=== PATIENT | male | born 1945 | race Caucasian/White ===

== ENCOUNTER → 2016-10-02 | Outpatient (CLI) | payer MEDICARE ==
[~2016-10-02] MED LIST: AMIO200T PO; ASPI325T PO; ATOR40TA PO; ATOR40TA16 PO; Aspirin Chew PO; DOCU1CAP39 PO; FERR325T PO; FINA5TAB2 PO; METO25TA3 PO; PANT40TA3 PO; PLAV75TA29 PO; PROS5TAB2 PO; PROT40TA PO; TAMS0.4C67 PO; TAMS5CAP PO; ZOFR4TAB3 SL
[2016-10-02 13:09] LABS: HEMATOCRIT 41.6 % (39.0-51.0); MEAN CELL VOLUME 96.1 FL (80.0-100.0); MEAN CORPUSCULAR HEMOGLOBIN 32.3 PG (27.0-34.0); MEAN CORPUSCULAR HGB CONC 33.6 % (32.0-36.0); PLATELET COUNT 122 TH/MM3 (150-450); RED BLOOD COUNT 4.33 MIL/MM3 (4.50-5.90); RED CELL DISTRIBUTION WIDTH 14.8 % (11.6-17.2); REVIEW FLAG FINAL; WHITE BLOOD COUNT 14.3 TH/MM3 (4.0-11.0)
[2016-10-02 13:32] LABS: ANION GAP 6 MEQ/L (5-15); AST (GOT) 13 U/L (15-37); BICARBONATE 26.3 MEQ/L (21.0-32.0); BLOOD UREA NITROGEN 11 MG/DL (7-18); CHLORIDE 112 MEQ/L (98-107); GLOMERULAR FILTRATION RATE 48 ML/MIN (>89); GLUCOSE,FASTING 99 MG/DL (74-99); POTASSIUM 4.4 MEQ/L (3.5-5.1); SODIUM (NA) 144 MEQ/L (136-145)
[2016-10-02 13:42] LABS: ALKALINE PHOSPHATASE 86 U/L (45-117); ALT (GPT) 19 U/L (12-78); HDL CHOLESTEROL 33.5 MG/DL (40.0-60.0); LDL CHOLESTEROL 44 MG/DL (0-99); LDL CHOLESTEROL DIRECT 51 MG/DL (0-99); TOTAL BILIRUBIN ADULT 0.6 MG/DL (0.2-1.0)
[2016-10-02 13:59] LABS: WESTERGREN SEDIMENTATION RATE 2 mm/hr (0-20)
[2016-10-02 16:19] LABS: HEMOGLOBIN A1a 1.1 %; HEMOGLOBIN A1b 0.7 %; HEMOGLOBIN F 0.7 %; HEMOGLOBIN LA1C 1.8 %; HEMOGLOBIN P3 3.3 %
== END ==
LOC: PLAB 11:09
PROVIDERS: ATTEND Family Medicine
DX: R53.83 Other fatigue (principal); E78.2 Mixed hyperlipidemia; I10 Essential (primary) hypertension; R73.01 Impaired fasting glucose; M35.3 Polymyalgia rheumatica; N39.0 Urinary tract infection, site not specified; C91.90 Lymphoid leukemia, unspecified not having achieved remission
CPT/HCPCS: 36415; 80053; 80061; 83036; 83721; 84443; 85027; 85652

== ENCOUNTER → 2016-12-18 | Outpatient (CLI) | payer MEDICARE ==
[2016-12-18 16:25] LABS: BICARBONATE 25.1 MEQ/L (21.0-32.0); POTASSIUM 4.5 MEQ/L (3.5-5.1)
== END ==
LOC: PLAB 11:28
PROVIDERS: ATTEND Family Medicine
DX: E78.4 Other hyperlipidemia (principal); I10 Essential (primary) hypertension; R73.01 Impaired fasting glucose
CPT/HCPCS: 36415; 80048

== ENCOUNTER → 2016-12-31 | Outpatient (CLI) | payer MEDICARE | LOC: PLAB 10:21 | PROVIDERS: ATTEND Internal Medicine Cardiovascular Disease | DX: R93.1 Abnormal findings on diagnostic imaging of heart and coronary circulation (principal) | CPT/HCPCS: 36415; 80048 ==

== ENCOUNTER 2017-01-15 10:38 | Inpatient (IN) | payer MEDICARE ==
[2017-01-15] VITALS (11 sets, daily range): BP systolic 139–167; BP diastolic 64–97; PULSE 44–77; RESP 16–18; TEMP 97.5–98.1; O2SAT 96–100
[~2017-01-15] VITALS: Ht 177.8 cm; Wt 96.7 kg
[~2017-01-15 10:38] MED LIST changes: -AMIO200T PO; -ASPI325T PO; -ATOR40TA16 PO; -Aspirin Chew PO; -DOCU1CAP39 PO; -FERR325T PO; -FINA5TAB2 PO; -METO25TA3 PO; -PANT40TA3 PO; -PLAV75TA29 PO; -TAMS5CAP PO
[2017-01-15] MEDS ORDERED: NS 1000P @30 MLS/HR (KVO) IV SCH (11:30)
[2017-01-15] MEDS: SODIUM CHLOR 0.9% 1000 ML INJ 1,000 ML IV SCH (11:32)
[2017-01-15] MEDS ORDERED: ATOR40TA16 PO (11:37)
[2017-01-15] MEDS ORDERED: ASPI325T PO (11:37)
[2017-01-15] MEDS ORDERED: FINA5TAB2 PO (11:37)
[2017-01-15] MEDS ORDERED: TAMS5CAP PO (11:37)
[2017-01-15] MEDS ORDERED: PANT40TA3 PO (11:37)
[2017-01-15] MEDS ORDERED: ASPIRIN 325 MG TAB PO SCH (11:45)
[2017-01-15 11:47] LABS: AUTOMATED NEUTROPHIL # 1.8 TH/MM3 (1.8-7.7); BASOPHIL % 0.2 % (0.0-2.0); EOSINOPHIL % 0.2 % (0.0-4.0); HEMATOCRIT 39.7 % (39.0-51.0); LYMPH % 81.8 % (9.0-44.0); MEAN CORPUSCULAR HGB CONC 34.7 % (32.0-36.0); MONO % 1.1 % (0.0-8.0); NEUT % 16.7 % (16.0-70.0); PLATELET COUNT 114 TH/MM3 (150-450); RED BLOOD COUNT 4.05 MIL/MM3 (4.50-5.90); RED CELL DISTRIBUTION WIDTH 14.4 % (11.6-17.2)
[2017-01-15 11:48] LABS: HEMO FLAGS AUTO DIFF
[2017-01-15 11:58] LABS: APTT (PATIENT) 26.3 SEC (24.3-30.1); PROTHROMBIN TIME - PATIENT 11.4 SEC (9.8-11.6)
[2017-01-15 12:15] LABS: POTASSIUM 3.9 MEQ/L (3.5-5.1)
[2017-01-15] MEDS ORDERED: IOHEXOL 350 MG/ML 100 ML BTL (for Cath Lab) OTHER ONE (12:25)
[2017-01-15] MEDS ORDERED: MIDAZOLAM HCL 2 MG/2 ML VIAL ONE (12:26)
[2017-01-15] MEDS ORDERED: HEPARIN-NS/PF INJ 500 ML ONE (12:26)
[2017-01-15 12:46] LABS: NEUTROPHIL # MANUAL DIFF 0.9 TH/MM3 (1.8-7.7); OVALOCYTES 1+ (NORMAL); POLYS (SEG NEUTROPHILS) 8 % (16-70); WBC DIFF SAMPLE 100
[2017-01-15 12:47] LABS: PLATELET ESTIMATE SMEAR LOW (NORMAL); PLATELET MORPHOLOGY NORMAL (NORMAL); SCAN/DIFF FINAL DIFF MANUAL
--- NOTE | 2017-01-15 14:02 | CATHPROC ---
Useful Systems HIS Report Study Information Study Number Admission Scheduled Start Study Start [id number] 01/15/2017 01/15/2017 Jan 15 2017 12:29PM Referring Institution Admit Source Facility Department 1 Other [facility] - [employer] Consultant Physician and Clinical Staff Initial Sofya Salazar All Source Intelligence Technician Bharati Ugalde,BSRN All Source Intelligence Technician Carley Girard,RN Recorder Kwaku, Mierla,DANCE STUDIO MANAGER TECH2 Scrub Philipp Chu,PARATRANSIT OPERATOR(BS) X-Ray Melody Haley RT(R) Procedures Performed Procedure Location (Site) Vessel Name Angiogram LV LV Ventricle Coronary Angiograms LCA Left Coronary Coronary Angiograms RCA Right Coronary L Heart Cath Equipment Time Recycling Operator Description Size Mfg Part Number Used/Scraped TRANSDUCER, TRUWAVE 13:13 World BX * [id number] Used W/Vent[employer] Life SystemsCOCK INTRODUCER SET, [id number]- 13:13 [employer] FR 5 Used MICROPUNCTURE, STIFFENED SC-NT-U-SST 13:13 [employer] INDUSTRIES PACK, CCL CUSTOM * [id number] Used 13:13 [employer] PACER PEN, SKIN DUAL W/ RULER * [id number] Used 13:13 [employer] WIRE, 3MMJ .035 180CM 180CM [id number] Used PROBE COVER, STERILE 13:13 [employer] * [id number] Used ULTRASOUND W/ GEL 13:13 NAMIC MANIFOLD, 4 PORT * [id number] Used 13:13 [employer] OMNIPAQUE, 350 MG, 100ML 100ML [id number] Used 13:13 [employer]UC[employer] BLANK[employer],WARM AIR CCL * [id number] Used 13:13 TERUMO MEDICAL SHEATH, FR4 TERUMO (10CM) FR 4 [id number] Used 12:46 [employer] MED[employer] SHEATH, FR4 TERUMO (10CM) FR 4 [id number] Used History: Current Medications Medication Dosage/Unit Route Frequency Last Date/Time Taken ASA LISINOPRIL FLOMAX PROPECIA History: Allergies Allergy Reaction No Known Allergies Cipro Darvocet-N 100 Sulfamethoxazole History: Risk Factors Family History of Hypertension Dyslipidemia Previous ND Previous Heart Failure Premature CAD Yes Yes Yes No No Prior Valve Prior PCI Prior CABG Surgery No No No Cerebrovascular Peripheral Artery Chronic Lung On Dialysis Diabetes Disease Disease Disease No No No Yes No History: Symptoms/Diagnosis Selection Items Chest pain History: Stress Tests Stress or Imaging Studies Performed No History: Other Disease Selection Items Gerd History: Other Current Smoker Method Quit Packs a Day Years Used Pack Years No Cigarettes 22 Years Ago 1 26 26 Labs Hgb (g/dl) Hct (%) WBC (l/cumm) Platelets (thousands) 12.00-18.00 37.00-55.00 4.80-10.80 140.00-450.00 13.8 39.7 11 114 Glucose (mg/dl) BUN (mg/dl) Creatinine (mg/dl) BUN:Creatinine (1:x) 60.00-110.00 8.00-20.00 0.10-9.00 10.00-20.00 110 12 1.2 10 Na (meq/l) K (meq/l) 138.00-146.00 3.80-5.10 142 3.9 INR (PTT:PT) 0.50-2.00 1 CPK-MB (ng/ML) 0.00-7.00 Not Drawn Medication Medication Total Dose (Bolus/Oral) Medication Total Dosage/Unit 1% XYLOCAINE 20 mL FENTANYL 25 mcg VERSED 1 mg Medications (Bolus/Oral) Medication Time Given Dosage/Unit Administered By Reason VERSED 01/15/2017 1:11:27 PM 1 mg Carley Girard 1 mg VERSED given in lab by Carley Girard RN in Left Antecubital via Peripheral IV. Ordered by Sofya Chambers. 1% XYLOCAINE 01/15/2017 1:12:34 PM 20 mL Sofya East 20 mL 1% XYLOCAINE given in lab by Sofya East in Right Groin via Subcutaneous. Ordered by Sofya Kearney. FENTANYL 01/15/2017 1:27:46 PM 25 mcg Carley Girard 25 mcg FENTANYL given in lab by Carley Girard RN via Peripheral IV. Ordered by Sofya East. Medication (Drip) Medication Time Given Dosage/Unit Concentration/Unit Diluent (ml) Solution IV Solutions 01/15/2017 12:29:13 PM 0 mL (IV) NaCl .9 IV Solutions given in lab by Bharati Ugalde BSRN in Left Antecubital via Peripheral IV. Pump/Drip Flow = 20 ml/hr using NaCl .9. Ordered by Sofya East. Initial Case Assessment Cardiovascular HR NIBP 77 158/87 Edema Present Skin color Skin None Normal Warm Dry Circulatory - Right Pulses Dorsalis Pedis Femoral 2 2 Scale (0,1,2,3,4,d) Circulatory - Left Pulses Dorsalis Pedis Femoral 1 2 Scale (0,1,2,3,4,d) Neurological State Oriented to time-place- Alert Moves all extremities person Respiration - General Respiration Rate SpO2 (%) (B/min) 12 97 Final Case Assessment Cardiovascular HR Rhythm NIBP Chest Pain 51 reg 131/76 0 Edema Present Skin color Skin None Normal Warm Circulatory - Right Pulses Dorsalis Pedis Femoral 1 2 Scale (0,1,2,3,4,d) Circulatory - Left Pulses Dorsalis Pedis Femoral 1 2 Scale (0,1,2,3,4,d) Circulatory - Lower Extremities Color Lower Right Color Lower Left Normal Normal Neurological State Oriented to time-place- Alert Moves all extremities person Respiration - General Respiration Rate SpO2 (%) (B/min) 7 96 Chronological Log Time Study Chronological Log 12:25:51 Patient arrived via Bed. Vitals capture started with the following parameters, Patient=Adult, Interval=5 min, Initial Pr lmorgg=520 mmHg, 12:28:40 Deflation Rate=5 mmHg 12:29:00 Patient Name, D.O.B, / Armband Verified By R.N. 12:29:00 Consent signed by the physician and the patient and verified by the [employer] Consultant staff. 12:29:01 Pre-op and post- op instructions given; patient acknowledges understanding of instructions. 12:29:04 Patient has been NPO for More than 6Hrs. 12:29:05 Skin Breakdown-none 12:29:08 Dexter Prominences Protected 12:29:12 A # 20 IV was noted in the Antecubital (left). Grade = 0 IV Solutions given in lab by Bharati Ugalde BSRN in Left Antecubital via Peripheral IV. Pump /Drip Flow = 20 ml/hr 12:29:13 using NaCl .9. Ordered by Sofya East. 12:29:14 History and physical on the chart or being dictated. Assessment: Initial Case, HR=77 BPM, XJPR=206/87 mmhg, Edema=None, Color=Normal, Skin = Warm, D ry Right Pulses: Dieudonne Ped=2, Femoral=2 12:29:17 Left Pulses: Dieudonne Ped=1, Femoral=2 Neurological: State=Alert, Ox3, LAWLER Respiration: Resp=12 B/min, SpO2=97 % 12:29:23 Reference ECG taken 12:29:45 HR=76 bpm, OOJH=332/87 mmhg, SpO2=98.0 %, Resp=13 B/min, Pain=0, Bryce=10, Andrews=2 12:34:19 HR=69 bpm, IFPB=901/81 mmhg, SpO2=99.0 %, Resp=12 B/min, Pain=0, Bryce=10, Andrews=2 12:39:18 HR=76 bpm, CQVV=319/86 mmhg, SpO2=98.0 %, Resp=14 B/min, Pain=0, Bryce=10, Andrews=2 12:43:17 Bilateral groins prepped with 2% chlorhexidine, and with a 3 min. waiting time. 12:44:17 HR=76 bpm, ACIM=947/92 mmhg, SpO2=97.0 %, Resp=14 B/min, Pain=0, Bryce=10, Andrews=2 12:49:20 HR=75 bpm, MBCK=702/91 mmhg, SpO2=98.0 %, Resp=13 B/min, Pain=0, Bryce=10, Andrews=2 12:50:41 Pressure channel 1 zero failed. 12:51:01 Pressure channel 1 zeroed. 12:54:21 HR=65 bpm, WHPB=702/87 mmhg, SpO2=98.0 %, Resp=14 B/min, Pain=0, Bryce=10, Andrews=2 12:59:22 HR=73 bpm, OIOT=408/83 mmhg, SpO2=99.0 %, Resp=12 B/min, Pain=0, Bryce=10, Andrews=2 13:04:19 HR=80 bpm, DIXV=241/87 mmhg, SpO2=95.0 %, Resp=14 B/min, Pain=0, Bryce=10, Andrews=2 13:09:18 HR=71 bpm, OTYJ=856/88 mmhg, SpO2=97.0 %, Resp=14 B/min, Pain=0, Bryce=10, Andrews=2 Time Out. Correct patient, correct procedure,correct physician, ,power injector loaded or not l oaded with contrast with ::47 surgical team present. Time Out Concurred by MD, individual staff and MBA INTERN in procedure 13:11:07 Case Start 1 mg VERSED given in lab by Carley Girard, RN in Left Antecubital via Peripheral IV. Ordere d by Kita, 13:11:27 Humayun. 20 mL 1% XYLOCAINE given in lab by Sofya East in Right Groin via Subcutaneous. Ordered by Kita, 13:12:34 Humayun. 13::47 Access site was Femoral Artery. A INTRODUCER SET, MICROPUNCTURE, STIFFENED FR 5 was advanced into the Fem Art (right) using the Modified 13:12:53 Seldinger technique. A SHEATH, FR4 TERUMO (10CM) FR 4 was exchanged in the Fem Art (right). This was necessary in or norman to achieve 13:13:53 vascular hemostasis. 13:14:20 The Recorder is being relieved by Melody Haley, RT(R). 13:14:22 HR=67 bpm, BBZD=691/91 mmhg, SpO2=92.0 %, Resp=23 B/min, Pain=0, Bryce=10, Andrews=2 A JL 4.0 INFINITI CATHETER FR 4 was advanced over a wire. OMNIPAQUE, 350 MG, 100ML 100ML was us ed for 13:15:02 injections. Recorded Pressure: Ao, HR=70, Condition=Condition 1 13:16:02 (Aorta) Ao 143/65/94 13:16:25 The LCA was injected and visualized at various angles. OMNIPAQUE, 350 MG, 100ML 100ML used . 13:19:17 Catheter was removed 13:19:27 HR=70 bpm, PJSY=171/73 mmhg, SpO2=94.0 %, Resp=17 B/min, Pain=0, Bryce=10, Andrews=2 A 3DRC INFINITI CATHETER FR 4 was advanced over a wire. OMNIPAQUE, 350 MG, 100ML 100ML was used for 13:20:18 injections. 13:22:42 The RCA was injected and visualized at various angles. OMNIPAQUE, 350 MG, 100ML 100ML used . 13:23:18 Catheter was removed A PIGTAIL ANG. INFINITI CATHETER FR 4 was advanced over a wire. OMNIPAQUE, 350 MG, 100ML 100ML was used 13:24:48 for injections. 13:25:09 HR=60 bpm, UENP=928/83 mmhg, SpO2=93.0 %, Resp=44 B/min, Pain=0, Bryce=10, Andrews=2 Recorded Pressure: LV, HR=59, Condition=Condition 1 13:27:27 (Left Ventricle) LV 141/10/15 13:27:46 25 mcg FENTANYL given in lab by Carley Girard, SUE via Peripheral IV. Ordered by Sofya East. 13:28:01 The LV was injected at 8 cc/sec for a total of 20. OMNIPAQUE, 350 MG, 100ML 100ML used. Recorded Pressure: LV, Ao, HR=68, Condition=Condition 1 13:29:14 (Left Ventricle) LV 128/19/18, (Aorta) Ao 140/71/103 13:29:23 HR=55 bpm, FRWJ=646/76 mmhg, SpO2=95.0 %, Resp=29 B/min, Pain=0, Bryce=10, Andrews=2 13:29:37 Catheter was removed 13::58 Case End Assessment: Final Case, HR=51 BPM, Rhythm=reg, FAFW=348/76 mmhg, Chest Pain=0, Edema=None, Col or=Normal, Skin = Warm Right Pulses: Dieudonne Ped=1, Femoral=2 Left Pulses: Dieudonne Ped=1, Femoral=2 13:30:13 Lower Right Extremities: Color=Normal Lower Left Extremities: Color=Normal Neurological: State=Alert, Ox3, LAWLER Respiration: Resp=7 B/min, SpO2=96 % 13:30:49 Catheter(s) removed without difficulty 13:30:52 Case End ::58 Sterile dressing applied to site 13::58 No case complications noted. 13:31:03 Cine recording checked. 13:31:08 Bedside Report will be given. 13:31:13 Contrast Scanned 13:31:33 A Left Heart Cath was performed. 13:31:35 Sheath removed; pressure applied to access site. 13:35:01 HR=62 bpm, PXQT=201/79 mmhg, SpO2=94.0 %, Resp=11 B/min, Pain=0, Bryce=10, Andrews=2 13:38:19 Patient moved to stretcher 13:39:25 HR=52 bpm, CZZN=128/76 mmhg, SpO2=94.0 %, Resp=20 B/min, Pain=0, Bryce=10, Andrews=2 13:39:47 Clinical correlaton risk stratification. 13:44:22 HR=57 bpm, YVGH=081/80 mmhg, SpO2=94.0 %, Resp=18 B/min, Pain=0, Bryce=10, Andrews=2 13:49:56 AVZM=861/79 mmhg, Pain=0, Bryce=10, Andrews=2 End Study - Contrast Media Used In Study Contrast Total Opened (mL) Total Used (mL) Total Wasted (mL) Omnipaque 65 65 0 End Study - Maximum Contrast Load Max Contrast Load (mL) 388.3 End Study - Radiation Exposure Fluoro Time (minutes) 3.2 End Study - Sheaths Sheaths Pulled By Sheath Hold Time (min) Philipp Chu 15 End Study - Patient Disposition Complications Transferred To Interventional Outcome No Outpatient Bed No attempt made
[2017-01-15] MEDS ORDERED: MISC INFORMATION XX ONE (14:30)
[2017-01-15] MEDS ORDERED: SODIUM CHLOR 0.9% 1000 ML INJ 1,000 ML IV ONE (15:00)
[2017-01-15] MEDS ORDERED: SODIUM CHLOR 0.9% 1000 ML INJ 1,000 ML IV SCH (15:00)
--- NOTE | 2017-01-15 15:54 | PD.CAR.PN ---
CVT Progress Note Subjective/Hospital Course: STS DATA DISCUSSED WITH PT RISK SCORES About the STS Risk Calculator Procedure: CAB Only Risk of Mortality: 1.7% Morbidity or Mortality: 13.437% Long Length of Stay: 5.152% Short Length of Stay: 44.178% Permanent Stroke: 0.717% Prolonged Ventilation: 7.967% DSW Infection: 0.404% Renal Failure: 3.178% Reoperation: 6.172% Objective: Vital Signs Date Time Temp Pulse Resp B/P Pulse Ox O2 Delivery O2 Flow Rate FiO2 01/15/17 14:13 95 Room Air 01/15/17 11:30 98.1 77 18 156/97 100 Labs: Laboratory Tests Test 01/15/17 11:20 White Blood Count 11.0 TH/MM3 (4.0-11.0) Red Blood Count 4.05 MIL/MM3 (4.50-5.90) Hemoglobin 13.8 GM/DL (13.0-17.0) Hematocrit 39.7 % (39.0-51.0) Mean Corpuscular Volume 98.0 FL (80.0-100.0) Mean Corpuscular Hemoglobin 34.0 PG (27.0-34.0) Mean Corpuscular Hemoglobin 34.7 % Concent (32.0-36.0) Red Cell Distribution Width 14.4 % (11.6-17.2) Platelet Count 114 TH/MM3 (150-450) Mean Platelet Volume 8.1 FL (7.0-11.0) Neutrophils (%) (Auto) 16.7 % (16.0-70.0) Lymphocytes (%) (Auto) 81.8 % (9.0-44.0) Monocytes (%) (Auto) 1.1 % (0.0-8.0) Eosinophils (%) (Auto) 0.2 % (0.0-4.0) Basophils (%) (Auto) 0.2 % (0.0-2.0) Neutrophils # (Auto) 1.8 TH/MM3 (1.8-7.7) Lymphocytes # (Auto) 9.0 TH/MM3 (1.0-4.8) Monocytes # (Auto) 0.1 TH/MM3 (0-0.9) Eosinophils # (Auto) 0.0 TH/MM3 (0-0.4) Basophils # (Auto) 0.0 TH/MM3 (0-0.2) CBC Comment AUTO DIFF Differential Total Cells 100 Counted Neutrophils % (Manual) 8 % (16-70) Lymphocytes % 92 % (9-44) Neutrophils # (Manual) 0.9 TH/MM3 (1.8-7.7) Differential Comment FINAL DIFF MANUAL Platelet Estimate LOW (NORMAL) Platelet Morphology Comment NORMAL (NORMAL) Ovalocytes 1+ (NORMAL) Prothrombin Time 11.4 SEC (9.8-11.6) Prothromb Time International 1.0 RATIO Ratio Activated Partial 26.3 SEC Thromboplast Time (24.3-30.1) Sodium Level 142 MEQ/L (136-145) Potassium Level 3.9 MEQ/L (3.5-5.1) Chloride Level 111 MEQ/L (98-107) Carbon Dioxide Level 26.0 MEQ/L (21.0-32.0) Anion Gap 5 MEQ/L (5-15) Blood Urea Nitrogen 12 MG/DL (7-18) Creatinine 1.24 MG/DL (0.60-1.30) Estimat Glomerular Filtration 57 ML/MIN (>89) Rate Random Glucose 110 MG/DL (74-106) Calcium Level 8.5 MG/DL (8.5-10.1) Result Diagram: 01/15/17 1120 01/15/17 1120 Rachna Mcgee January 15, 2017 15:54
[2017-01-15] MEDS ORDERED: INSULIN REGULAR (IV INFUSION) 100 UNITS in SODIUM CHLORIDE 0.9% INJ 99 ML IV SCH (16:00)
[2017-01-15] MEDS ORDERED: CEFAZOLIN INJ 500 MG in SODIUM CHLORIDE 0.9% IRR BTL 500 ML IRRIGATION SCH (16:00)
[2017-01-15] MEDS ORDERED: METOPROLOL TARTRATE 25 MG TAB PO SCH (16:00)
[2017-01-15] MEDS ORDERED: ceFAZolin 2 GM PREMIX 50 ML IV SCH (16:00)
[2017-01-15] MEDS ORDERED: SODIUM CHLORIDE 0.9% FLUSH 10 ML FLUSH IV FLUSH PRN ×2 (16:00→16:15)
[2017-01-15] MEDS ORDERED: CHLORHEXIDINE GLUCONATE 4% SOLN 120 ML BTL TOPICAL SCH (16:00)
[2017-01-15] MEDS ORDERED: PAPAVERINE INJ 60 MG, NITROGLYCERIN INJ 100 MCG, DILTIAZEM INJ 100 MG in SODIUM CHLORID... IRRIGATION SCH (16:00)
[2017-01-15] MEDS ORDERED: ONDANSETRON HCL 4 MG/2 ML VIAL IVP PRN (16:15)
[2017-01-15] MEDS ORDERED: NITROGLYCERIN 0.3 MG SL 100 TABS/BTL SL PRN (16:15)
[2017-01-15] MEDS ORDERED: MAGNESIUM HYDROXIDE SUSP 30 ML CUP PO PRN (16:15)
[2017-01-15] MEDS ORDERED: NALOXONE HCL 0.4 MG/ML AMP IV PRN (16:15)
[2017-01-15] MEDS: DOCUSATE SODIUM 100 MG CAP PO SCH ×2 (16:30→21:00)
--- NOTE | 2017-01-15 17:07 | MP ---
cc: SHASHI DENNEY M.D., HUMAYUN A. MD DR. KHANNA, DATE OF SURGERY 01/15/17 CONSENT Full informed consent was obtained prior to procedure. Risks of , bleeding, myocardial infarction, perforation, aspiration, foreseen and unforeseen complications were reviewed. The patient appeared to understand the risks. PROCEDURE Bilateral coronaries LV gram PROCEDURE IN DETAIL The patient was draped and prepped in usual manner. Right femoral artery was entered using a micropuncture technique. Via the 4-Maltese sheath, left and right coronary catheters were used to intubate the left and right coronaries. Pigtail catheter for the ventricle. Multiple angiographic views were carried out. At the end of the catheterization procedure, all catheters and sheaths were removed. Manual pressure applied until good hemostasis achieved. The patient went to her room in stable condition. HEMODYNAMIC RESULTS The aortic pressure 143/65 with a mean 94. The LV pressure was 128 with a left ventricle end-diastolic pressure 18. There was no evidence of gradient ICD. The LV pressure was 141 with the left ventricle end diastolic pressure of 15. There was no evidence of significant gradient on pullback across the LV outflow tract and aortic valve. LEFT VENTRICULOGRAM The overall left ventricular ejection fraction was 60%. There was no evidence significant mitral regurgitation or mural thrombus. CORONARIES The left main had an ostial stenosis of about 90% which was highly eccentric and hazy. The left anterior descending artery was a medium-sized vessel which had a diffuse 60% disease in its midsection. The first diagonal branch was a medium-sized vessel, had ostial stenosis of 75%. The circumflex vessel was a large vessel with a large first obtuse marginal branch that bifurcated into two sub-branches. The distal left main had a 50% stenosis. The mid right had a 60-70% stenosis with post stenotic aneurysmal dilation. There was a small posterior descending artery and a medium posterolateral branch. CONCLUSION 1. Significant left main and right coronary disease. 2. Normal LV function. PLAN Bypass surgery to the LAD, circumflex, right coronary and possibly the diagonal 1. Case discussed with Dr. Correa. Sofya East MD, FRCP,FACC HAJ/SA /2:02 PM /4:53 PM
[2017-01-15 17:33] LABS: HEMOGLOBIN A1a 0.8 %; HEMOGLOBIN A1b 0.7 %; HEMOGLOBIN Ao 87.4 %; HEMOGLOBIN F 0.8 %; HEMOGLOBIN LA1C 1.9 %; HEMOGLOBIN P3 3.3 %
[2017-01-15] MEDS ORDERED: SODIUM CHLORIDE 0.9% FLUSH 10 ML FLUSH IV FLUSH SCH (21:00)
[2017-01-15] MEDS ORDERED: ATROPINE SULFATE 1 MG/10 ML SYRINGE ONE (21:18)
[2017-01-15] MEDS ORDERED: EPINEPHrine HCL (1:10,000) 1 MG/10 ML SYRINGE ONE (21:18)
[2017-01-15] MEDS: TAMSULOSIN HCL 0.4 MG CAP PO SCH (21:57)
[2017-01-15] MEDS: ATORVASTATIN 40 MG TAB PO SCH (21:57)
[2017-01-15] MEDS: METOPROLOL TARTRATE 25 MG TAB PO SCH (21:59)
[2017-01-15] MEDS: SODIUM CHLORIDE 0.9% FLUSH 10 ML FLUSH IV FLUSH SCH (21:59)
--- NOTE | 2017-01-15 22:35 | RADRPT ---
EXAM DATE/TIME: 01/15/2017 21:37 [facility] COMPARISON: CHEST PA & LAT, October 07, 2014, 14:57. INDICATIONS : Evaluate for pneumonia, pneumothorax, and communicable disease. MEDICAL HISTORY : None. SURGICAL HISTORY : None. ENCOUNTER: Initial ACUITY: 1 day PAIN SCORE: 0/10 LOCATION: Bilateral chest FINDINGS: The heart size is upper limits of normal. There is some mild prominence to the central pulmonary ves sels and the interstitium. A focal alveolar consolidation is not seen. No effusion is seen. CONCLUSION: Mild prominence of the central pulmonary vessels likely representing some degree of p ulmonary venous hypertension. Kenny Velasco MD on January 15, 2017 at 22:21 Board Certified Radiologist. This report was verified electronically.
[2017-01-16] VITALS (30 sets, daily range): BP systolic 140–160; BP diastolic 66–94; PULSE 43–89; RESP 16–18; TEMP 97.3–98.3; O2SAT 95–98
--- NOTE | 2017-01-16 08:32 | MH ---
cc: PAULINE EAST M.D.,SHASHI GALLEGOS,HERMILA Armendariz MD DATE OF ADMISSION: 01/15/2017 DATE OF : 1945 HISTORY OF PRESENT ILLNESS 71-year-old patient of Dr. Shashi Herbert and also Dr. East. History of recent shortness of breath, fatigue over the past couple of months, he has a prior history of chronic lymphocytic leukemia with chemotherapy back in 2011 in remission for the last 2 years and he felt like this might have been no recurrence of his CLL. He has been followed by cardiology in the past for is very strong family history of coronary disease and just switched to Dr. East recently. He underwent a CT, coronary angiogram, which showed, significant coronary artery disease, high-grade 70% stenosis in the midportion of the RCA. Mild dilation of the aortic root. He then underwent cardiac cath today by Dr. East which showed 90% stenosis of the left main, 60% stenosis of the proximal left anterior descending and right coronary artery had 70% stenosis with ejection fraction of 60%. We were consulted to evaluate for coronary artery disease to the left anterior descending. The OM1, the right coronary artery and questionably the diagonal. PAST MEDICAL HISTORY: 1. The patients past medical history includes chronic lymphocytic leukemia in remission since 2011. Last dose of chemo was 2014. He is followed by the cath Dr. Mignon Julio. 2. History of dilated aortic root. 3. Gastroesophageal reflux disease. 4. Benign prostatic hypertrophy. 5. Hiatal hernia. 6. Hyperlipidemia. 7. History of bladder cancer in 1998. PAST SURGICAL HISTORY: Surgeries include left nephrectomy 1998 FAMILY HISTORY Father in his 50s from heart disease. His father had five brothers that had heart disease and in their 50s. He is with one child. He smoked for 26 years quit 1994. REVIEW OF SYSTEMS IN GENERAL: No night sweats, fever, heat and cold intolerance. SKIN: No psoriasis, itching or hives. HEAD, EYES, EARS, NOSE, AND THROAT: No blurred vision, hearing loss. RESPIRATORY: Positive for shortness of breath. CARDIOVASCULAR SYSTEM: As above in the history of present illness. GASTROINTESTINAL: No diarrhea, vomiting. GENITOURINARY: No burning, frequency, urgency. CENTRAL NERVOUS SYSTEM: No history of TIA, CVA, seizure disorder. ENDOCRINOLOGY: Positive. No history of hypothyroidism and/or diabetes. HEMATOLOGIC: Hematology positive for history of CLL in the past PHYSICAL EXAMINATION: VITAL SIGNS: Blood pressure 150/90, heart rate 77, respiratory rate of 18, room air sat 95%. IN GENERAL: Patient is awake, alert in no acute distress head is normocephalic, atraumatic. HEAD, EYES, EARS, NOSE, AND THROAT: Pupils equal and reactive. Oral mucosa pink, moist. NECK: Supple. No JVD. HEART: Heart sounds S1-S2, regular rate and rhythm. No rubs, murmurs, gallops. LUNGS: Clear to auscultation. No wheezes, rales or rhonchi. ABDOMEN: The abdomen is soft, nontender. No masses or organomegaly. EXTREMITIES: No cyanosis, clubbing or edema. LABORATORY FINDINGS Shows hemoglobin 13, hematocrit 39, white cell count of 11, platelet count 114, sodium 142, potassium 3.9, BUN of 12 with a creatinine 1.24, glucose 110, INR 1.0. RADIOLOGIC: Radiological exams are still pending. IMPRESSION This is a very pleasant 71-year-old male status post heart catheterization multivessel disease. Procedures, alternatives and risks were discussed with Dr. Gallegos. The plan will be for coronary artery bypass graft x3 to 4. He has also had a prior echocardiogram with some trace mitral regurgitation and mild left ventricular hypertrophy. And a trace tricuspid regurgitation, otherwise is relatively normal. PLAN: The plan will be for admission to see [facility] full workup still pending and plan for surgery on SaturdayJanuary 18. DICTATED BY: LOIS Dominique. Hermila Mann /3:48 PM /8:26 AM
[2017-01-16] MEDS: PANTOPRAZOLE SOD 40 MG DELAYED RELEASE TAB PO SCH (08:35)
[2017-01-16] MEDS: ACETAMINOPHEN 325 MG TAB PO PRN ×2 (08:35→16:57)
[2017-01-16] MEDS: FINASTERIDE 5 MG TAB PO SCH (08:35)
[2017-01-16] MEDS: ASPIRIN EC 81 MG TABEC PO SCH (08:35)
[2017-01-16] MEDS: SODIUM CHLORIDE 0.9% FLUSH 10 ML FLUSH IV FLUSH SCH ×2 (08:36→21:02)
[2017-01-16] MEDS: DOCUSATE SODIUM 100 MG CAP PO SCH ×2 (08:36→21:00)
[2017-01-16] MEDS: METOPROLOL TARTRATE 25 MG TAB PO SCH ×2 (08:38→21:01)
--- NOTE | 2017-01-16 09:57 | EKG ---
Date Performed: 01/15/2017 Time Performed: 11:33:26 PTAGE: 71 years EKG: Sinus rhythm . Normal ECG PREVIOUS TRACING : 12/27/2000 09.48 DOCTOR: Tristan Chung Interpretating Date/Time 01/16/2017 09:56:56
[2017-01-16] MEDS: SODIUM CHLOR 0.9% 1000 ML INJ 1,000 ML IV SCH (11:32)
[2017-01-16 13:09] LABS: BLOOD, URINE NEG (NEG); COMMENT (UR) CULT NOT INDICATED; CULTURE IF INDICATED CULT NOT INDICATED; GLUCOSE,URINE NEG (NEG); KETONE, URINE NEG (NEG); NITRITE,URINE NEG (NEG); SQUAMOUS EPITHELIAL CELL URINE 1 /hpf (0-5); URINE COLOR LIGHT-YELLOW (YELLW/STRAW)
--- NOTE | 2017-01-16 14:00 | RADRPT ---
EXAM DATE/TIME: 01/16/2017 11:34 [facility] COMPARISON: No previous studies available for comparison. INDICATIONS : Preop cardiac surgery. MEDICAL HISTORY : Hernia, hiatal. Gastroesophageal reflux disease. Benign prostatic hyperplasia, (BPH) Carcinoma, renal . SURGICAL HISTORY : Left nephrostomy. Cardiac cath. ENCOUNTER: Initial ACUITY: 1 day PAIN SCORE: 0/10 LOCATION: Bilateral leg. TECHNIQUE: Venous ultrasound of the left and right leg was performed from the inguinal ligament to the proximal calf. Real-time, color Doppler and spectral tracing, compression and augmentation techniques were us ed. FINDINGS: RIGHT LEG: There is normal compressibility of the deep venous system from the inguinal region to the proximal ca lf. No echogenic clot is seen in the lumen of the common femoral, femoral, popliteal, and posterior tibial veins. There is a normal response of the venous system to proximal and distal augmentation an d respiration. LEFT LEG: There is normal compressibility of the deep venous system from the inguinal region to the proximal ca lf. No echogenic clot is seen in the lumen of the common femoral, femoral, popliteal, and posterior tibial veins. There is a normal response of the venous system to proximal and distal augmentation an d respiration. CONCLUSION: No evidence of deep venous thrombosis within the lower extremities. Brennen Mendoza MD on January 16, 2017 at 13:58 Board Certified Radiologist. This report was verified electronically.
--- NOTE | 2017-01-16 14:10 | PD.CARD.PN ---
Subjective Subjective Remarks No chest pain , wound sites ok Objective Medications Administered Medications Medications (Trade) Dose Ordered Sig/Alyse Route PRN Reason Start Time Stop Time Status Last Admin Dose Admin Atorvastatin Calcium (Lipitor) 40 mg HS PO 01/15/17 21:00 01/15/17 21:57 Finasteride (Proscar) 5 mg DAILY PO 01/16/17 09:00 01/16/17 08:35 Pantoprazole Sodium (Protonix) 40 mg DAILY PO 01/16/17 09:00 01/16/17 08:35 Tamsulosin HCl (Flomax) 0.4 mg HS PO 01/15/17 21:00 01/15/17 21:57 Sodium Chloride (NS Flush) 2 ml BID IV FLUSH 01/15/17 21:00 01/16/17 08:36 Acetaminophen (Tylenol) 650 mg Q4H PRN PO TEMP > 100.4 01/15/17 16:15 01/16/17 08:35 Aspirin (Ecotrin Ec) 81 mg DAILY PO 01/16/17 09:00 01/16/17 08:35 Metoprolol Tartrate (Lopressor) 25 mg Q12HR PO 01/15/17 21:00 01/15/17 21:59 Vital Signs / I&O Vital Signs Date Time Temp Pulse Resp B/P Pulse Ox O2 Delivery O2 Flow Rate FiO2 01/16/17 12:38 51 01/16/17 11:29 47 01/16/17 11:00 98.1 48 18 141/88 98 01/16/17 10:00 49 01/16/17 09:47 63 01/16/17 08:39 48 01/16/17 07:00 62 01/16/17 07:00 98.3 59 18 140/94 97 01/16/17 06:41 46 01/16/17 05:10 45 01/16/17 04:54 53 01/16/17 03:15 97.9 57 18 150/66 98 01/16/17 03:04 47 01/16/17 02:00 53 01/16/17 01:00 43 01/16/17 00:00 43 01/15/17 23:15 97.5 52 16 139/64 97 01/15/17 23:00 44 01/15/17 21:00 62 01/15/17 20:00 54 01/15/17 19:05 97.8 53 18 167/81 96 01/15/17 19:00 58 01/15/17 19:00 62 01/15/17 18:00 52 01/15/17 17:00 52 01/15/17 16:00 52 01/15/17 16:00 53 01/15/17 15:00 97.9 52 16 149/75 97 01/15/17 15:00 52 01/15/17 14:13 95 Room Air I/O 01/15/17 01/15/17 01/15/17 01/16/17 01/16/17 01/16/17 07:00 15:00 23:00 07:00 15:00 23:00 Intake Total 480 ml 1480 ml Output Total 520 ml Balance 480 ml 960 ml Intake Oral 480 ml 480 ml IV Total 1000 ml Output Urine Total 520 ml # Bowel Movements 1 Physical Exam GENERAL: Well-nourished, well-developed patient in no apparent distress. SKIN: Warm and dry. NECK: JVD normal - less than or equal to 5 cm H20. CARDIOVASCULAR: Regular rate and rhythm without murmurs, gallops or rubs. RESPIRATORY: Normal breath sounds - equal bilaterally. No accessory muscle use. No wheezes, rales or rubs. PERIPHERY: No cyanosis or edema. Laboratory Laboratory Tests Test 01/15/17 01/16/17 11:20 12:00 White Blood Count 11.0 TH/MM3 Red Blood Count 4.05 MIL/MM3 Hemoglobin 13.8 GM/DL Hematocrit 39.7 % Mean Corpuscular Volume 98.0 FL Mean Corpuscular Hemoglobin 34.0 PG Mean Corpuscular Hemoglobin 34.7 % Concent Red Cell Distribution Width 14.4 % Platelet Count 114 TH/MM3 Mean Platelet Volume 8.1 FL Neutrophils (%) (Auto) 16.7 % Lymphocytes (%) (Auto) 81.8 % Monocytes (%) (Auto) 1.1 % Eosinophils (%) (Auto) 0.2 % Basophils (%) (Auto) 0.2 % Neutrophils # (Auto) 1.8 TH/MM3 Lymphocytes # (Auto) 9.0 TH/MM3 Monocytes # (Auto) 0.1 TH/MM3 Eosinophils # (Auto) 0.0 TH/MM3 Basophils # (Auto) 0.0 TH/MM3 CBC Comment AUTO DIFF Differential Total Cells 100 Counted Neutrophils % (Manual) 8 % Lymphocytes % 92 % Neutrophils # (Manual) 0.9 TH/MM3 Differential Comment FINAL DIFF MANUAL Platelet Estimate LOW Platelet Morphology Comment NORMAL Ovalocytes 1+ Prothrombin Time 11.4 SEC Prothromb Time International 1.0 RATIO Ratio Activated Partial 26.3 SEC Thromboplast Time Sodium Level 142 MEQ/L Potassium Level 3.9 MEQ/L Chloride Level 111 MEQ/L Carbon Dioxide Level 26.0 MEQ/L Anion Gap 5 MEQ/L Blood Urea Nitrogen 12 MG/DL Creatinine 1.24 MG/DL Estimat Glomerular Filtration 57 ML/MIN Rate Random Glucose 110 MG/DL Hemoglobin A1c 4.9 % Calcium Level 8.5 MG/DL Urine Color LIGHT-YELLOW Urine Turbidity CLEAR Urine pH 7.0 Urine Specific [place] 1.006 Urine Protein NEG mg/dL Urine Glucose (UA) NEG mg/dL Urine Ketones NEG mg/dL Urine Occult Blood NEG Urine Nitrite NEG Urine Bilirubin NEG Urine Urobilinogen LESS THAN 2.0 MG/DL Urine Leukocyte Esterase SMALL Urine RBC LESS THAN 1 /hpf Urine WBC 4 /hpf Urine Squamous Epithelial 1 /hpf Cells Microscopic Urinalysis Comment CULT NOT INDICATED Laboratory Tests Test 01/16/17 12:00 Urine Color LIGHT-YELLOW Urine Turbidity CLEAR Urine pH 7.0 Urine Specific [place] 1.006 Urine Protein NEG mg/dL Urine Glucose (UA) NEG mg/dL Urine Ketones NEG mg/dL Urine Occult Blood NEG Urine Nitrite NEG Urine Bilirubin NEG Urine Urobilinogen LESS THAN 2.0 MG/DL Urine Leukocyte Esterase SMALL Urine RBC LESS THAN 1 /hpf Urine WBC 4 /hpf Urine Squamous Epithelial 1 /hpf Cells Microscopic Urinalysis Comment CULT NOT INDICATED Sofya East MD January 16, 2017 14:10
--- NOTE | 2017-01-16 15:31 | RADRPT ---
EXAM DATE/TIME: 01/16/2017 11:02 [facility] COMPARISON: No previous studies available for comparison. INDICATIONS : Preop cardiac surgery. MEDICAL HISTORY : Hernia, hiatal. Benign prostatic hyperplasia, (BPH) Gastroesophageal reflux disease. Carcinoma, renal . SURGICAL HISTORY : Left nephrostomy. Cardiac cath. ENCOUNTER: Initial ACUITY: 1 day PAIN SCORE: 0/10 LOCATION: Bilateral neck PEAK SYSTOLIC VELOCITIES (cm/sec): ICA/CCA RATIO: Right: 0.9 Left: 0.9 ICA: Right: 70.9 Left: 84.5 CCA: Right: 80.1 Left: 94.4 ECA: Right: 94.4 Left: 93.1 VERTEBRAL: Right: 43.9 antegrade Left: 54.2 antegrade Elevated flow velocities and ICA/CCA ratios have been found to correlate with increased degrees of vessel stenosis, calculated as percentage of diameter relative to a normal segment of distal ICA/CCA FINDINGS: RIGHT CAROTID: No significant stenosis is visualized. The waveforms are within normal limits. LEFT CAROTID: No significant stenosis is visualized. The waveforms are within normal limits. VERTEBRAL ARTERIES: Antegrade flow is seen in both vertebral arteries. MISCELLANEOUS: None. CONCLUSION: No evidence of flow-limiting carotid stenosis. Kenny Eagle MD on January 16, 2017 at 15:28 Board Certified Radiologist. This report was verified electronically.
--- NOTE | 2017-01-16 15:32 | RADRPT ---
EXAM DATE/TIME: 01/16/2017 12:14 [facility] COMPARISON: No previous studies available for comparison. INDICATIONS : Preop cardiac surgery. MEDICAL HISTORY : Hernia, hiatal. Gastroesophageal reflux disease. Benign prostatic hyperplasia, (BPH) Carcinoma, renal . SURGICAL HISTORY : Left nephrostomy. Cardiac cath. ENCOUNTER: Initial ACUITY: 1 day PAIN SCORE: 0/10 LOCATION: Bilateral leg. GREATER SAPHENOUS VEIN THIGH: PROXIMAL: Right 5 mm Left 7 mm MID: Right 4 mm Left 3 mm DISTAL: Right 2 mm Left 3 mm CALF: PROXIMAL: Right 2 mm Left 3 mm MID: Right 2 mm Left Non-visualized DISTAL: Right 3 mm Left Non-visualized FINDINGS: The venous system of the lower extremities are patent by color Doppler imaging. Measurements of the leg veins (in mm) are listed above. CONCLUSION: Nonvisualization of the distal most left greater saphenous vein. Kenny Eagle MD on January 16, 2017 at 15:29 Board Certified Radiologist. This report was verified electronically.
[2017-01-16] MEDS: ATORVASTATIN 40 MG TAB PO SCH (21:01)
[2017-01-16] MEDS: TAMSULOSIN HCL 0.4 MG CAP PO SCH (21:02)
[2017-01-17] VITALS (24 sets, daily range): BP systolic 138–176; BP diastolic 78–88; PULSE 48–74; RESP 16–18; TEMP 97.5–98.1; O2SAT 96–100
[2017-01-17 06:27] LABS: AUTOMATED NEUTROPHIL # 2.1 TH/MM3 (1.8-7.7); EOSINOPHIL # 0.1 TH/MM3 (0-0.4); EOSINOPHIL % 0.4 % (0.0-4.0); HEMATOCRIT 38.9 % (39.0-51.0); LYMPH % 84.6 % (9.0-44.0); MEAN CELL VOLUME 97.9 FL (80.0-100.0); MEAN CORPUSCULAR HEMOGLOBIN 33.4 PG (27.0-34.0); MEAN CORPUSCULAR HGB CONC 34.1 % (32.0-36.0); MONO % 1.4 % (0.0-8.0); NEUT % 13.6 % (16.0-70.0); PLATELET COUNT 120 TH/MM3 (150-450); RED BLOOD COUNT 3.97 MIL/MM3 (4.50-5.90); RED CELL DISTRIBUTION WIDTH 14.4 % (11.6-17.2); WHITE BLOOD COUNT 15.4 TH/MM3 (4.0-11.0)
[2017-01-17 06:28] LABS: INTERNATIONAL NORMALIZED RATIO 1.1 RATIO; PROTHROMBIN TIME - PATIENT 11.7 SEC (9.8-11.6)
[2017-01-17 06:40] LABS: HEMO FLAGS AUTO DIFF
[2017-01-17 06:45] LABS: POTASSIUM 3.7 MEQ/L (3.5-5.1)
--- NOTE | 2017-01-17 07:16 | PD.CAR.PN ---
CVT Progress Note Subjective/Hospital Course: Remains pain free and hemodynamically stable OR in am Objective: Vital Signs Date Time Temp Pulse Resp B/P Pulse Ox O2 Delivery O2 Flow Rate FiO2 01/17/17 06:00 51 01/17/17 05:00 53 01/17/17 04:00 49 01/17/17 03:30 97.9 58 16 138/88 96 01/17/17 03:00 54 01/17/17 02:00 48 01/17/17 01:01 52 01/17/17 00:00 51 01/16/17 23:30 98.0 52 16 150/75 95 01/16/17 23:00 58 01/16/17 22:00 60 01/16/17 21:00 60 01/16/17 20:00 66 01/16/17 19:40 98.1 65 16 160/83 97 01/16/17 19:00 64 01/16/17 18:43 67 01/16/17 18:41 51 01/16/17 17:54 89 01/16/17 16:30 50 01/16/17 15:42 56 01/16/17 15:00 97.3 57 18 143/72 95 01/16/17 14:00 49 01/16/17 13:00 56 01/16/17 12:38 51 01/16/17 11:29 47 01/16/17 11:00 98.1 48 18 141/88 98 01/16/17 10:00 49 01/16/17 09:47 63 01/16/17 08:39 48 Labs: Laboratory Tests Test 01/17/17 05:07 White Blood Count 15.4 TH/MM3 (4.0-11.0) Red Blood Count 3.97 MIL/MM3 (4.50-5.90) Hemoglobin 13.3 GM/DL (13.0-17.0) Hematocrit 38.9 % (39.0-51.0) Mean Corpuscular Volume 97.9 FL (80.0-100.0) Mean Corpuscular Hemoglobin 33.4 PG (27.0-34.0) Mean Corpuscular Hemoglobin 34.1 % Concent (32.0-36.0) Red Cell Distribution Width 14.4 % (11.6-17.2) Platelet Count 120 TH/MM3 (150-450) Mean Platelet Volume 8.3 FL (7.0-11.0) Neutrophils (%) (Auto) 13.6 % (16.0-70.0) Lymphocytes (%) (Auto) 84.6 % (9.0-44.0) Monocytes (%) (Auto) 1.4 % (0.0-8.0) Eosinophils (%) (Auto) 0.4 % (0.0-4.0) Basophils (%) (Auto) 0.0 % (0.0-2.0) Neutrophils # (Auto) 2.1 TH/MM3 (1.8-7.7) Lymphocytes # (Auto) 13.0 TH/MM3 (1.0-4.8) Monocytes # (Auto) 0.2 TH/MM3 (0-0.9) Eosinophils # (Auto) 0.1 TH/MM3 (0-0.4) Basophils # (Auto) 0.0 TH/MM3 (0-0.2) CBC Comment AUTO DIFF Prothrombin Time 11.7 SEC (9.8-11.6) Prothromb Time International 1.1 RATIO Ratio Sodium Level 143 MEQ/L (136-145) Potassium Level 3.7 MEQ/L (3.5-5.1) Chloride Level 112 MEQ/L (98-107) Carbon Dioxide Level 26.0 MEQ/L (21.0-32.0) Anion Gap 5 MEQ/L (5-15) Blood Urea Nitrogen 11 MG/DL (7-18) Creatinine 1.15 MG/DL (0.60-1.30) Estimat Glomerular Filtration 62 ML/MIN (>89) Rate Random Glucose 94 MG/DL (74-106) Calcium Level 8.4 MG/DL (8.5-10.1) Blood Type O NEGATIVE Antibody Screen NEGATIVE Result Diagram: 01/17/17 0507 01/17/17 0507 (1) CAD in [place] artery Jose Correa MD January 17, 2017 07:16
[2017-01-17] MEDS: SODIUM CHLORIDE 0.9% FLUSH 10 ML FLUSH IV FLUSH SCH ×2 (08:35→20:54)
[2017-01-17] MEDS: PANTOPRAZOLE SOD 40 MG DELAYED RELEASE TAB PO SCH (08:35)
[2017-01-17] MEDS: METOPROLOL TARTRATE 25 MG TAB PO SCH ×2 (08:35→20:54)
[2017-01-17] MEDS: ASPIRIN EC 81 MG TABEC PO SCH (08:35)
[2017-01-17] MEDS: FINASTERIDE 5 MG TAB PO SCH (08:35)
[2017-01-17] MEDS: DOCUSATE SODIUM 100 MG CAP PO SCH ×2 (08:35→20:53)
[2017-01-17 10:16] LABS: EOSINOPHILS 1 % (0-4); NEUTROPHIL # MANUAL DIFF 3.2 TH/MM3 (1.8-7.7); POLYS (SEG NEUTROPHILS) 21 % (16-70); SMUDGE CELLS PRESENT PRESENT; WBC DIFF SAMPLE 100
[2017-01-17 10:17] LABS: OVALOCYTES 1+ (NORMAL); PLATELET ESTIMATE SMEAR LOW (NORMAL); PLATELET MORPHOLOGY NORMAL (NORMAL); SCAN/DIFF FINAL DIFF MANUAL
[2017-01-17] MEDS: SODIUM CHLOR 0.9% 1000 ML INJ 1,000 ML IV SCH (11:32)
[2017-01-17] MEDS: ATORVASTATIN 40 MG TAB PO SCH (20:54)
[2017-01-17] MEDS: TAMSULOSIN HCL 0.4 MG CAP PO SCH (20:54)
[2017-01-18] VITALS (11 sets, daily range): BP systolic 99–176; BP diastolic 52–87; PULSE 65–104; RESP 12–18; TEMP 97.4–98.3; O2SAT 93–97
[2017-01-18] MEDS ORDERED: LACTATED RINGER'S 1000 ML IV PRN (01:30)
[2017-01-18] MEDS ORDERED: SODIUM CHLORID 0.9% 500 ML IV PRN (01:30)
[2017-01-18] MEDS ORDERED: INSULIN HUMAN REGULAR 1,000 UNITS/10 ML VIAL SQ PRN (01:30)
[2017-01-18] MEDS ORDERED: CHLORHEXIDINE GLUCONATE 2 % 1 PACK (2 CLOTHS) TOPICAL PRN (01:30)
[2017-01-18] MEDS ORDERED: POVIDONE IODINE 5% (ANTISEPSIS KIT) 4 APPLICATIONS EACH NARE PRN (01:30)
[2017-01-18] MEDS ORDERED: CALCIUM CHLORIDE 10% SOLN 1 GRAM/10 ML SYR IV ONE (05:00)
[2017-01-18] MEDS ORDERED: MAGNESIUM SULFATE 1000 MG/2 ML VIAL (PED) IV ONE (05:00)
[2017-01-18] MEDS ORDERED: GLYCOPYRROLATE 0.2 MG/ML VIAL IV ONE (05:00)
[2017-01-18] MEDS ORDERED: VECURONIUM BROMIDE 10 MG VIAL IV ONE (05:00)
[2017-01-18] MEDS ORDERED: ARTIFICIAL TEARS OPTH OINT 3.5 APPLIC/3.5 GM TUBO ONE (05:00)
[2017-01-18] MEDS ORDERED: AMINOCAPROIC ACID INJ 250 MG/ML 20 ML VIAL IV ONE (05:00)
[2017-01-18] MEDS ORDERED: PROTAMINE SULFATE 250 MG/25 ML VIAL IV ONE (05:00)
[2017-01-18] MEDS ORDERED: HEPARIN SODIUM - SQ 10,000 UNITS/ML VIAL SQ ONE (05:00)
[2017-01-18] MEDS ORDERED: ceFAZolin INJ 1,000 MG VIAL IV ONE ×2 (05:00→11:38)
[2017-01-18] MEDS ORDERED: NITROGLYCERIN-DEXTROSE INJ 250 ML IV ONE (05:00)
[2017-01-18] MEDS ORDERED: PROPOFOL 1000 MG/100 ML INJ 100 ML IV ONE (05:00)
[2017-01-18] MEDS ORDERED: VANCOMYCIN HCL 1000 MG VIAL ONE (06:52)
[2017-01-18] MEDS ORDERED: ceFAZolin 2 GM PREMIX 50 ML ONE (06:53)
[2017-01-18] MEDS ORDERED: HEPARIN SODIUM - SQ 10,000 UNITS/ML VIAL ONE (06:53)
--- NOTE | 2017-01-18 07:10 | PD.CAR.PN ---
CVT Progress Note Subjective/Hospital Course: Remains pain free and hemodynamically stable OR in am 01/18 Morning beta aneudy held due to symptomatic bradycardia (HR-50) Will re-evaluate post-op Objective: Vital Signs Date Time Temp Pulse Resp B/P Pulse Ox O2 Delivery O2 Flow Rate FiO2 01/18/17 03:00 65 01/18/17 03:00 98.1 71 18 176/87 95 01/17/17 23:00 97.5 61 18 176/86 99 01/17/17 23:00 50 01/17/17 21:34 62 01/17/17 20:00 64 01/17/17 20:00 97.8 64 18 163/86 100 01/17/17 19:00 64 01/17/17 16:00 68 01/17/17 16:00 97.6 59 18 159/85 97 01/17/17 15:00 55 01/17/17 14:00 56 01/17/17 13:00 60 01/17/17 12:00 52 01/17/17 11:30 98.1 50 18 159/78 97 01/17/17 11:00 51 01/17/17 10:00 48 01/17/17 09:00 72 01/17/17 08:00 74 01/17/17 07:30 97.9 64 18 176/83 98 Result Diagram: 01/17/17 0507 01/17/17 0507 (1) CAD in [place] artery Jose Correa MD January 18, 2017 07:10
[2017-01-18] MEDS ORDERED: SODIUM CHLOR 0.9% 250 ML INJ 250 ML IV ONE (07:54)
[2017-01-18] MEDS ORDERED: SODIUM CHLOR 0.9% 1000 ML INJ 1,000 ML IV ONE (07:54)
[2017-01-18] MEDS ORDERED: SODIUM CHLORID 0.9% 500 ML INJ 500 ML IV ONE (07:55)
[2017-01-18] MEDS ORDERED: NORMOSOL R INJ 1,000 ML IV ONE (07:55)
[2017-01-18] MEDS: FINASTERIDE 5 MG TAB PO SCH (09:00)
[2017-01-18] MEDS: DOCUSATE SODIUM 100 MG CAP PO SCH ×2 (09:00→21:54)
[2017-01-18] MEDS ORDERED: ceFAZolin INJ 1,000 MG VIAL ONE (11:41)
[2017-01-18] MEDS: DOBUTamine PREMIX DRIP 250 ML IV SCH (12:26)
[2017-01-18] MEDS ORDERED: ACETAMINOPHEN 325 MG TAB PO PRN (12:30)
[2017-01-18] MEDS ORDERED: DEXTROSE 50% IN WATER 50 ML VIAL(D50) IV PUSH PRN (12:30)
[2017-01-18] MEDS ORDERED: ACETAMINOPHEN 650 MG SUPP RECTAL PRN (12:30)
[2017-01-18] MEDS ORDERED: PHENYLEPHRINE INJ 40 MG in DEXTROSE 5% IN WATE 500 ML INJ 496 ML IV SCH ×2 (12:30)
[2017-01-18] MEDS ORDERED: SODIUM CHLORIDE 0.9% FLUSH 10 ML FLUSH IV FLUSH PRN (12:30)
[2017-01-18] MEDS ORDERED: EPINEPHrine (1:1000) INJ 4 MG in DEXTROSE 5% IN WATER INJ 246 ML IV SCH ×2 (12:30)
[2017-01-18] MEDS ORDERED: CALCIUM CHLORIDE 10% 1 GRAM/10 ML VIAL IV PRN (12:30)
[2017-01-18] MEDS ORDERED: NITROGLYCERIN-DEXTROSE INJ 250 ML IV SCH (12:30)
[2017-01-18] MEDS ORDERED: CALCIUM CHLORIDE INJ 1 GM in SODIUM CHLORIDE 0.9% INJ 100 ML IV PRN (12:30)
[2017-01-18] MEDS ORDERED: POTASSIUM CHLOR 20 MEQ PREMIX 100 ML IV PRN ×3 (12:30)
[2017-01-18] MEDS ORDERED: MAGNESIUM SULFATE INJ 2 GM in SODIUM CHLORIDE 0.9% INJ 100 ML IV PRN ×4 (12:30)
[2017-01-18] MEDS ORDERED: ALBUMIN HUMAN 5% 12.5 GM/250 ML BOTTLE IV PRN (12:30)
[2017-01-18] MEDS ORDERED: Post-op Orders (for Pharmacy) MISC OTHER ONE (12:30)
[2017-01-18] MEDS ORDERED: POTASSIUM CHLORIDE 20 MEQ CONTROLLED RELEASE TAB PO PRN ×2 (12:30)
[2017-01-18] MEDS ORDERED: hydrALAZINE HCL 20 MG/ML VIAL IV PRN (12:30)
[2017-01-18] MEDS ORDERED: MEPERIDINE HCL 25 MG/ML VIAL IV PRN (12:30)
[2017-01-18] MEDS ORDERED: DEXMEDETOMIDINE INJ 200 MCG in SODIUM CHLORIDE 0.9% INJ 50 ML IV SCH (12:30)
[2017-01-18] MEDS ORDERED: CLEVIDIPINE INJ 50 ML IV SCH (12:30)
[2017-01-18] MEDS ORDERED: DOPamine INJ PREMIX 500 ML IV SCH (12:30)
[2017-01-18] MEDS ORDERED: METOPROLOL TARTRATE 5 MG/5 ML VIAL IV PUSH PRN (12:30)
[2017-01-18] MEDS ORDERED: INSULIN REGULAR (IV INFUSION) 100 UNITS in SODIUM CHLORIDE 0.9% INJ 99 ML IV SCH (12:30)
[2017-01-18] MEDS ORDERED: ONDANSETRON HCL 4 MG/2 ML VIAL IV PUSH PRN (12:30)
[2017-01-18] MEDS ORDERED: ACETAMINOPHEN/HYDROcodone 325 MG/5 MG TAB PO PRN (12:30)
--- NOTE | 2017-01-18 12:39 | PD.OP ---
cc: Sofya East MD; Jose Correa MD Operative Report Date of Surgery: January 18, 2017 Preoperative Diagnosis: Postoperative Diagnosis: Procedure: 1. Urgent Off-pump Coronary Artery Bypass Grafting x 4 with left internal mammary artery (RICHARDSON) to left anterior descending (LAD), reverse saphenous vein graft to the OM1, reverse saphenous vein graft to the RCA, reverse saphenous vein graft to the Diagonal 1 2. Left Atrial Appendage Excision 3. Circumferential Myocardial Lysis of Adhesions 4. Right Leg Endoscopic Vein [place] 5. Intraoperative Vein Mapping. . Surgeon: Jose Correa [employer] Analyst(s): Nino Santiago Operation and Findings: PREPROCEDURE DIAGNOSES 1. Severe Multi Vessel Coronary Artery Disease. 2. Left Main Stenosis 3. Unstable Angina 4. Acute Renal Insufficiency POSTPROCEDURE DIAGNOSES 1. Severe Multi Vessel Coronary Artery Disease. 2. Left Main Stenosis 3. Severe Pericarditis 4. Dense Myocardial Adhesions 5. Unstable Angina 6. Acute Renal Insufficiency SURGICAL PROCEDURE 1. Urgent Off-pump Coronary Artery Bypass Grafting x 4 with left internal mammary artery ([place]) to left anterior descending (LAD), reverse saphenous vein graft to the OM1, reverse saphenous vein graft to the RCA, reverse saphenous vein graft to the Diagonal 1 2. Left Atrial Appendage Excision 3. Circumferential Myocardial Lysis of Adhesions 4. Right Leg Endoscopic Vein [place] 5. Intraoperative Vein Mapping. SURGEON Jose Correa MD [facility] ARCHITECT TAE Lindquist [facility] ANESTHESIA General endotracheal AIR SAW OPERATOR HEMALATHA Collazo MD PREPARATION ChloraPrep. COUNTS Needle, sponge, and instrument counts were correct. DRAINS Two 32-[place] mediastinal tubes. COMPLICATIONS None. INDICATIONS FOR PROCEDURE The patient is a 71-year-old presenting with chest pain. Patient was noted to have multi-vessel coronary artery disease. The patient is being brought to the operating room for surgical revascularization therapy. PROCEDURE Patient was brought to the operating room and placed supine on the OR table. Following the induction of adequate general endotracheal anesthesia and placement of appropriate monitoring devices, intraoperative vein mapping was performed which revealed suitable-caliber conduit in bilateral lower extremities. The patient was then prepped and draped in standard sterile fashion. Next, 2500 units of intravenous heparin was given. The right greater saphenous vein was harvested endoscopically. This appeared to be a useable- caliber conduit. Simultaneously, a median sternotomy was performed and the left internal mammary artery dissected free off the posterior sternal table. The patient was systemically heparinized and anticoagulation monitored by serial ACT measurements. The internal mammary artery had excellent pulsatile flow in it and was a small-caliber conduit. The pericardium was then divided in the midline, the cradle created and targets analyzed. Of note, the patient had severe pericarditis with dense adhesions between the myocardium and the pericardium. These were lysed circumferentially and the heart exposed. At this point, all anastomoses were performed in a beating-heart fashion using the Ma[place] stabilizing system with intracoronary shunts. The left internal mammary artery was anastomosed to the distal LAD (2.0 mm) in an end-to-side fashion using 7-0 Prolene. Segment of saphenous vein graft was then anastomosed to the OM1 (1.75 mm) in an end-to-side fashion using 7-0 Prolene. The next segment was anastomosed to the D1 (1.5 mm) in an end-to-side fashion using a running 7-0 Prolene. The final segment of saphenous vein graft was then anastomosed to the RCA (2.5 mm) in an end-to-side fashion using 7-0 Prolene. The left atrial appendage was then excised using a ALEC stapler. The proximal anastomoses were then constructed to the ascending aorta in a running manner using 6-0 Prolene. The aorta was noted to be heavily calcified with thick intraluminal atheroma. Therefore, the proximal anastomosis of the diagonal graft was performed to the OM1 graft in a [id number], end to side fashion. All anastomotic sites were inspected and appeared to be hemostatic and patent. Protamine solution was given. Strict hemostasis was assured. The closure was undertaken. 2 chest tubes were placed. The pericardium was reapproximated in the midline. The sternum was approximated using sternal wires. The muscular and fascial layer were then closed in 3 layers. The endoscopic vein harvest site was closed in 2 layers. The patient tolerated the procedure well and was transferred to CVICU in stable condition. Jose Correa MD January 18, 2017 12:38
[2017-01-18] MEDS ORDERED: MIDAZOLAM HCL 5 MG/5 ML VIAL ONE ×2 (13:13)
[2017-01-18] MEDS ORDERED: fentaNYL CITRATE 1000 MCG/20 ML VIAL ONE (13:14)
--- NOTE | 2017-01-18 13:32 | RADRPT ---
EXAM DATE/TIME: 01/18/2017 12:46 [facility] COMPARISON: CHEST PA & LAT, January 15, 2017, 21:37. INDICATIONS : Post op CABG. MEDICAL HISTORY : None. SURGICAL HISTORY : None. ENCOUNTER: Initial ACUITY: 1 day PAIN SCORE: Non-responsive. LOCATION: Bilateral upper chest FINDINGS: Portable AP view of the chest demonstrates mildly enlarged cardiac silhouette in this patient post re cent median sternotomy. Endotracheal tube is present with tip measuring 4.1 cm from the yany, left subclavian central line tip is in the SVC, and NG tube courses beyond the GE junction. There is a lef t chest tube present a mediastinal drain in place. Lungs are underinflated with atelectasis at the tera ng bases. No pneumothorax or pleural effusion is visualized. CONCLUSION: Expected findings following recent CABG. The lungs are underinflated with atelectasis at the lung bas es. Kenny Webber MD on January 18, 2017 at 13:28 Board Certified Radiologist. This report was verified electronically.
[2017-01-18] MEDS ORDERED: RESP: RACEPINEPHRINE 2.25% 0.5 ML NEB NEB PRN (13:45)
[2017-01-18] MEDS: ACETAMINOPHEN 1000 MG/100 ML VIAL IV SCH (14:06)
[2017-01-18] MEDS: KETOROLAC TROMETHAMINE 30 MG/ML (IVP) VIAL IV PUSH PRN (15:58)
[2017-01-18] MEDS ORDERED: ceFAZolin 2 GM PREMIX 50 ML IV SCH (16:00)
[2017-01-18] MEDS: RESP: ALBUTEROL 2.5 MG/IPRATROPIUM 0.5 MG NEB (SCH) NEB ×2 (16:19→21:52)
[2017-01-18] MEDS: MORPHINE SULFATE 4 MG/ML INJ IV PRN ×2 (16:23→17:05)
[2017-01-18] MEDS: ceFAZolin 2 GM PREMIX 50 ML IV SCH (18:05)
[2017-01-18] MEDS: LACTATED RINGER'S 1000 ML INJ 500 ML IV PRN ×2 (19:09→19:10)
[2017-01-18] MEDS: TAMSULOSIN HCL 0.4 MG CAP PO SCH (21:54)
[2017-01-18] MEDS: METOPROLOL TARTRATE 25 MG TAB PO SCH (21:54)
[2017-01-18] MEDS: AMIODARONE 200 MG TAB PO SCH (21:54)
[2017-01-18] MEDS: SODIUM CHLORIDE 0.9% FLUSH 10 ML FLUSH IV FLUSH SCH (21:54)
[2017-01-18] MEDS: ATORVASTATIN 40 MG TAB PO SCH (21:54)
[2017-01-19] VITALS (19 sets, daily range): BP systolic 9–121; BP diastolic 46–74; PULSE 58–94; RESP 16–18; TEMP 97.8–98.8; O2SAT 92–98
[2017-01-19] MEDS: ACETAMINOPHEN 1000 MG/100 ML VIAL IV SCH ×2 (00:15→06:27)
[2017-01-19] MEDS: ceFAZolin 2 GM PREMIX 50 ML IV SCH ×3 (02:16→18:00)
[2017-01-19] MEDS: KETOROLAC TROMETHAMINE 30 MG/ML (IVP) VIAL IV PUSH PRN (02:16)
[2017-01-19] MEDS: RESP: ALBUTEROL 2.5 MG/IPRATROPIUM 0.5 MG NEB (SCH) NEB ×4 (04:56→21:00)
[2017-01-19 06:00] LABS: MEAN CELL VOLUME 97.3 FL (80.0-100.0); PLATELET COUNT 97 TH/MM3 (150-450); RED BLOOD COUNT 2.78 MIL/MM3 (4.50-5.90); RED CELL DISTRIBUTION WIDTH 14.1 % (11.6-17.2); WHITE BLOOD COUNT 9.3 TH/MM3 (4.0-11.0)
[2017-01-19 06:07] LABS: BICARBONATE 23.8 MEQ/L (21.0-32.0)
--- NOTE | 2017-01-19 06:11 | RADRPT ---
EXAM DATE/TIME: 01/19/2017 03:43 [facility] COMPARISON: CHEST SINGLE AP, January 18, 2017, 12:46. INDICATIONS : Shortness of breath, possible pulmonary disease. MEDICAL HISTORY : None. SURGICAL HISTORY : CABG. ENCOUNTER: Subsequent ACUITY: 2 days PAIN SCORE: Non-responsive. LOCATION: Bilateral chest FINDINGS: A single view of the chest demonstrates cardiomegaly with previous CABG. Small left pleural effusion. Left-sided chest tube, mediastinal chest tube and left subclavian central line are stable in positio n. Endotracheal tube has been removed. Minimal bibasilar densities. Osseous structures are intact. CONCLUSION: 1. Status post CABG. 2. Bibasilar densities likely atelectasis. 3. Small left pleural effusion. Brice Reis MD on January 19, 2017 at 6:08 Board Certified Radiologist. This report was verified electronically.
[2017-01-19 06:21] LABS: REVIEW FLAG FINAL
[2017-01-19] MEDS: PANTOPRAZOLE SOD 40 MG DELAYED RELEASE TAB PO SCH (06:27)
[2017-01-19] MEDS: DOBUTamine PREMIX DRIP 250 ML IV SCH (06:39)
[2017-01-19] MEDS: DOCUSATE SODIUM 100 MG CAP PO SCH ×3 (09:00→21:00)
[2017-01-19] MEDS: METOPROLOL TARTRATE 25 MG TAB PO SCH ×2 (09:00→21:34)
[2017-01-19] MEDS: CLOPIDOGREL 75 MG TAB PO SCH (09:00)
--- NOTE | 2017-01-19 09:29 | PD.CAR.PN ---
CVT Progress Note Subjective/Hospital Course: Remains pain free and hemodynamically stable OR in am 01/18 Morning beta aneudy held due to symptomatic bradycardia (HR-50) Will re-evaluate post-op 01/18 Procedure: 1. Urgent Off-pump Coronary Artery Bypass Grafting x 4 with left internal mammary artery ([place]) to left anterior descending (LAD), reverse saphenous vein graft to the OM1, reverse saphenous vein graft to the RCA, reverse saphenous vein graft to the Diagonal 1 2. Left Atrial Appendage Excision 3. Circumferential Myocardial Lysis of Adhesions 4. Right Leg Endoscopic Vein [place] 5. Intraoperative Vein Mapping. 01/19 Doing well Transfer telemetry Maintain CT Objective: Vital Signs Date Time Temp Pulse Resp B/P Pulse Ox O2 Delivery O2 Flow Rate FiO2 01/19/17 07:00 98.3 65 18 9/46 93 116/54 01/19/17 07:00 65 01/19/17 04:56 92 Nasal Cannula 5.00 01/19/17 03:16 18 01/19/17 03:00 97.8 73 18 115/60 95 121/57 01/19/17 03:00 73 01/19/17 00:45 20 01/18/17 23:00 84 01/18/17 23:00 98.3 84 18 104/53 95 115/60 01/18/17 21:53 97 Nasal Cannula 4.00 01/18/17 19:00 98.3 68 18 97 99/52 01/18/17 19:00 68 01/18/17 16:30 20 01/18/17 15:48 94 Nasal Cannula 4.00 01/18/17 15:47 94 Nasal Cannula 4 01/18/17 15:40 97.7 01/18/17 15:20 50 01/18/17 15:00 97.7 84 12 94 122/61 01/18/17 15:00 84 01/18/17 15:00 50 01/18/17 14:45 50 01/18/17 14:30 50 01/18/17 14:05 96 45 01/18/17 13:30 104 01/18/17 13:30 50 01/18/17 13:30 97.4 01/18/17 13:30 97.4 104 12 122/75 94 124/64 01/18/17 12:55 93 60 Labs: Laboratory Tests Test 01/19/17 05:30 White Blood Count 9.3 TH/MM3 (4.0-11.0) Red Blood Count 2.78 MIL/MM3 (4.50-5.90) Hemoglobin 9.7 GM/DL (13.0-17.0) Hematocrit 27.0 % (39.0-51.0) Mean Corpuscular Volume 97.3 FL (80.0-100.0) Mean Corpuscular Hemoglobin 35.0 PG (27.0-34.0) Mean Corpuscular Hemoglobin 36.0 % Concent (32.0-36.0) Red Cell Distribution Width 14.1 % (11.6-17.2) Platelet Count 97 TH/MM3 (150-450) Mean Platelet Volume 8.5 FL (7.0-11.0) Sodium Level 141 MEQ/L (136-145) Potassium Level 4.0 MEQ/L (3.5-5.1) Chloride Level 109 MEQ/L (98-107) Carbon Dioxide Level 23.8 MEQ/L (21.0-32.0) Anion Gap 8 MEQ/L (5-15) Blood Urea Nitrogen 13 MG/DL (7-18) Creatinine 1.28 MG/DL (0.60-1.30) Estimat Glomerular Filtration 55 ML/MIN (>89) Rate Random Glucose 117 MG/DL (74-106) Calcium Level 8.4 MG/DL (8.5-10.1) Magnesium Level 2.0 MG/DL (1.5-2.5) Result Diagram: 01/19/17 0530 01/19/1730 (1) CAD in [place] artery (2) S/P CABG x 4 (3) Pericarditis Jose Correa MD January 19, 2017 09:29
[2017-01-19] MEDS ORDERED: SOD PHOSPHATE/SOD BIPHOSPHATE (ADULT) ENEMA 133ML RECTAL PRN (09:30)
[2017-01-19] MEDS ORDERED: GLUCAGON 1 MG/ML VIAL OTHER PRN (09:30)
[2017-01-19] MEDS ORDERED: DEXTROSE 50% IN WATER 50 ML VIAL(D50) IV PRN (09:30)
[2017-01-19] MEDS ORDERED: BISACODYL 10 MG SUPP RECTAL PRN (09:30)
[2017-01-19] MEDS: ASPIRIN 81 MG CHEW TAB PO SCH (09:41)
[2017-01-19] MEDS: AMIODARONE 200 MG TAB PO SCH ×2 (09:41→21:33)
[2017-01-19] MEDS: SODIUM CHLORIDE 0.9% FLUSH 10 ML FLUSH IV FLUSH SCH ×2 (09:41→21:33)
[2017-01-19] MEDS: FINASTERIDE 5 MG TAB PO SCH (09:41)
--- NOTE | 2017-01-19 09:47 | EKG ---
Date Performed: 01/19/2017 Time Performed: 06:44:54 PTAGE: 71 years EKG: Sinus rhythm . Normal ECG PREVIOUS TRACING : 01/15/2017 11.33 DOCTOR: Akil Rizvi Interpretating Date/Time 01/19/2017 09:45:02
[2017-01-19] MEDS: INSULIN ASPART SUPPLEMENTAL SCALE SQ SCH ×4 (10:50→21:35)
[2017-01-19] MEDS: ACETAMINOPHEN/HYDROcodone 325 MG/5 MG TAB PO PRN ×3 (12:57→23:26)
[2017-01-19] MEDS: SENNOSIDES 8.6 MG TAB PO SCH (21:00)
[2017-01-19] MEDS: TAMSULOSIN HCL 0.4 MG CAP PO SCH (21:33)
[2017-01-19] MEDS: ATORVASTATIN 40 MG TAB PO SCH (21:33)
[2017-01-20] VITALS (31 sets, daily range): BP systolic 100–128; BP diastolic 58–75; PULSE 68–95; RESP 16–18; TEMP 98.1–100; O2SAT 92–98
[2017-01-20] MEDS: ceFAZolin 2 GM PREMIX 50 ML IV SCH (02:00)
[2017-01-20] MEDS: INSULIN ASPART SUPPLEMENTAL SCALE SQ SCH ×5 (02:46→20:58)
[2017-01-20] MEDS: ACETAMINOPHEN/HYDROcodone 325 MG/5 MG TAB PO PRN ×3 (03:04→08:36)
[2017-01-20 05:44] LABS: AUTOMATED NEUTROPHIL # 2.6 TH/MM3 (1.8-7.7); EOSINOPHIL % 0.3 % (0.0-4.0); HEMATOCRIT 24.6 % (39.0-51.0); LYMPH % 77.3 % (9.0-44.0); LYMPHOCYTE # 9.7 TH/MM3 (1.0-4.8); MEAN CORPUSCULAR HEMOGLOBIN 33.3 PG (27.0-34.0); MONO % 1.8 % (0.0-8.0); NEUT % 20.6 % (16.0-70.0); PLATELET COUNT 89 TH/MM3 (150-450); RED BLOOD COUNT 2.51 MIL/MM3 (4.50-5.90); RED CELL DISTRIBUTION WIDTH 14.2 % (11.6-17.2); WHITE BLOOD COUNT 12.5 TH/MM3 (4.0-11.0)
[2017-01-20] MEDS: PANTOPRAZOLE SOD 40 MG DELAYED RELEASE TAB PO SCH (06:06)
[2017-01-20 06:07] LABS: HEMO FLAGS AUTO DIFF
[2017-01-20 06:09] LABS: MAGNESIUM 2.2 MG/DL (1.5-2.5); POTASSIUM 4.2 MEQ/L (3.5-5.1)
[2017-01-20] MEDS: RESP: ALBUTEROL 2.5 MG/IPRATROPIUM 0.5 MG NEB (SCH) NEB ×3 (07:14→20:00)
[2017-01-20 07:27] LABS: BANDS 1 % (0-6); EOSINOPHILS 1 % (0-4); NEUTROPHIL # MANUAL DIFF 2.9 TH/MM3 (1.8-7.7); POLYS (SEG NEUTROPHILS) 22 % (16-70); WBC DIFF SAMPLE 100
[2017-01-20 07:28] LABS: PLATELET ESTIMATE SMEAR LOW (NORMAL); PLATELET MORPHOLOGY NORMAL (NORMAL); SCAN/DIFF FINAL DIFF MANUAL; SMUDGE CELLS PRESENT PRESENT
[2017-01-20 07:29] LABS: OVALOCYTES 1+ (NORMAL)
[2017-01-20] MEDS: POLYETHYLENE GLYCOL 17 GM PKG PO SCH (09:00)
[2017-01-20] MEDS: MAGNESIUM HYDROXIDE SUSP 30 ML CUP PO SCH (09:00)
--- NOTE | 2017-01-20 09:10 | PD.CAR.PN ---
CVT Progress Note Subjective/Hospital Course: Remains pain free and hemodynamically stable OR in am 01/18 Morning beta aneudy held due to symptomatic bradycardia (HR-50) Will re-evaluate post-op 01/18 Procedure: 1. Urgent Off-pump Coronary Artery Bypass Grafting x 4 with left internal mammary artery (RICHARDSON) to left anterior descending (LAD), reverse saphenous vein graft to the OM1, reverse saphenous vein graft to the RCA, reverse saphenous vein graft to the Diagonal 1 2. Left Atrial Appendage Excision 3. Circumferential Myocardial Lysis of Adhesions 4. Right Leg Endoscopic Vein [place] 5. Intraoperative Vein Mapping. 01/19 Doing well Transfer telemetry Maintain CT 01/20 D/C CT Wean Oxygen Possible D/C home in am Objective: Vital Signs Date Time Temp Pulse Resp B/P Pulse Ox O2 Delivery O2 Flow Rate FiO2 01/20/17 08:17 86 01/20/17 07:14 93 Nasal Cannula 3.00 01/20/17 07:08 18 01/20/17 07:00 98.1 84 18 112/58 92 01/20/17 07:00 84 01/20/17 07:00 92 Nasal Cannula 4.00 01/20/17 06:00 68 01/20/17 05:00 72 01/20/17 04:00 68 01/20/17 03:11 94 Nasal Cannula 4.00 01/20/17 03:10 77 18 100/59 94 01/20/17 03:00 71 01/20/17 02:00 76 01/20/17 01:00 78 01/20/17 00:00 72 01/19/17 23:45 96 Nasal Cannula 4.00 01/19/17 23:43 72 16 108/57 96 01/19/17 23:00 75 01/19/17 22:00 94 01/19/17 21:00 86 01/19/17 21:00 95 Nasal Cannula 3.00 01/19/17 20:00 80 01/19/17 19:30 98.8 79 18 120/74 96 Arterial Line 01/19/17 19:30 96 Nasal Cannula 4.00 01/19/17 19:00 72 01/19/17 18:00 76 01/19/17 17:00 73 01/19/17 16:00 76 01/19/17 15:00 98.0 65 18 110/65 98 01/19/17 15:00 98 Nasal Cannula 4.00 01/19/17 15:00 69 01/19/17 14:03 60 01/19/17 13:00 58 01/19/17 11:00 98.1 62 18 114/74 97 102/51 Labs: Laboratory Tests Test 01/20/17 05:30 White Blood Count 12.5 TH/MM3 (4.0-11.0) Red Blood Count 2.51 MIL/MM3 (4.50-5.90) Hemoglobin 8.3 GM/DL (13.0-17.0) Hematocrit 24.6 % (39.0-51.0) Mean Corpuscular Volume 98.0 FL (80.0-100.0) Mean Corpuscular Hemoglobin 33.3 PG (27.0-34.0) Mean Corpuscular Hemoglobin 34.0 % Concent (32.0-36.0) Red Cell Distribution Width 14.2 % (11.6-17.2) Platelet Count 89 TH/MM3 (150-450) Mean Platelet Volume 8.3 FL (7.0-11.0) Neutrophils (%) (Auto) 20.6 % (16.0-70.0) Lymphocytes (%) (Auto) 77.3 % (9.0-44.0) Monocytes (%) (Auto) 1.8 % (0.0-8.0) Eosinophils (%) (Auto) 0.3 % (0.0-4.0) Basophils (%) (Auto) 0.0 % (0.0-2.0) Neutrophils # (Auto) 2.6 TH/MM3 (1.8-7.7) Lymphocytes # (Auto) 9.7 TH/MM3 (1.0-4.8) Monocytes # (Auto) 0.2 TH/MM3 (0-0.9) Eosinophils # (Auto) 0.0 TH/MM3 (0-0.4) Basophils # (Auto) 0.0 TH/MM3 (0-0.2) CBC Comment AUTO DIFF Differential Total Cells 100 Counted Neutrophils % (Manual) 22 % (16-70) Band Neutrophils % 1 % (0-6) Lymphocytes % 73 % (9-44) Monocytes % 3 % (0-8) Eosinophils % 1 % (0-4) Neutrophils # (Manual) 2.9 TH/MM3 (1.8-7.7) Differential Comment FINAL DIFF MANUAL Smudge Cells PRESENT Platelet Estimate LOW (NORMAL) Platelet Morphology Comment NORMAL (NORMAL) Ovalocytes 1+ (NORMAL) Sodium Level 137 MEQ/L (136-145) Potassium Level 4.2 MEQ/L (3.5-5.1) Chloride Level 105 MEQ/L (98-107) Carbon Dioxide Level 24.0 MEQ/L (21.0-32.0) Anion Gap 8 MEQ/L (5-15) Blood Urea Nitrogen 14 MG/DL (7-18) Creatinine 1.30 MG/DL (0.60-1.30) Estimat Glomerular Filtration 54 ML/MIN (>89) Rate Random Glucose 106 MG/DL (74-106) Calcium Level 7.8 MG/DL (8.5-10.1) Magnesium Level 2.2 MG/DL (1.5-2.5) Result Diagram: 01/20/17 0530 01/20/17 0530 (1) CAD in [place] artery (2) S/P CABG x 4 (3) Pericarditis Jose Correa MD January 20, 2017 09:09
[2017-01-20] MEDS: SODIUM CHLORIDE 0.9% FLUSH 10 ML FLUSH IV FLUSH SCH ×2 (09:24→21:23)
[2017-01-20] MEDS: AMIODARONE 200 MG TAB PO SCH ×2 (09:25→21:23)
[2017-01-20] MEDS: ASPIRIN 81 MG CHEW TAB PO SCH (09:26)
[2017-01-20] MEDS: METOPROLOL TARTRATE 25 MG TAB PO SCH ×2 (09:26→21:22)
[2017-01-20] MEDS: DOCUSATE SODIUM 100 MG CAP PO SCH ×2 (09:26→21:22)
[2017-01-20] MEDS: FINASTERIDE 5 MG TAB PO SCH (09:26)
[2017-01-20] MEDS: CLOPIDOGREL 75 MG TAB PO SCH (09:26)
[2017-01-20] MEDS: MULTIVITAMINS/MINERALS THERAPEUTIC TAB PO SCH (09:26)
[2017-01-20] MEDS: FERROUS SULFATE 325 MG (65 MG ELEMENTAL IRON) TAB PO SCH ×2 (12:35→16:21)
[2017-01-20] MEDS: SENNOSIDES 8.6 MG TAB PO SCH (21:22)
[2017-01-20] MEDS: TAMSULOSIN HCL 0.4 MG CAP PO SCH (21:22)
[2017-01-20] MEDS: ATORVASTATIN 40 MG TAB PO SCH (21:22)
[2017-01-21] VITALS (28 sets, daily range): BP systolic 107–146; BP diastolic 56–72; PULSE 70–118; RESP 18; TEMP 97.2–99.1; O2SAT 93–97
[2017-01-21] MEDS: RESP: ALBUTEROL 2.5 MG/IPRATROPIUM 0.5 MG NEB (PRN) NEB ×2 (00:16→19:34)
[2017-01-21] MEDS: ACETAMINOPHEN/HYDROcodone 325 MG/5 MG TAB PO PRN ×3 (01:18→09:15)
[2017-01-21] MEDS: INSULIN ASPART SUPPLEMENTAL SCALE SQ SCH ×4 (05:31→21:00)
[2017-01-21] MEDS: PANTOPRAZOLE SOD 40 MG DELAYED RELEASE TAB PO SCH (06:08)
[2017-01-21 06:29] LABS: HEMATOCRIT 22.9 % (39.0-51.0); MEAN CELL VOLUME 98.5 FL (80.0-100.0); MEAN CORPUSCULAR HEMOGLOBIN 34.4 PG (27.0-34.0); PLATELET COUNT 93 TH/MM3 (150-450); RED BLOOD COUNT 2.33 MIL/MM3 (4.50-5.90); RED CELL DISTRIBUTION WIDTH 14.6 % (11.6-17.2)
[2017-01-21 06:42] LABS: REVIEW FLAG FINAL
[2017-01-21 07:00] LABS: BICARBONATE 26.3 MEQ/L (21.0-32.0); MAGNESIUM 2.1 MG/DL (1.5-2.5); POTASSIUM 3.9 MEQ/L (3.5-5.1)
[2017-01-21] MEDS: RESP: ALBUTEROL 2.5 MG/IPRATROPIUM 0.5 MG NEB (SCH) NEB (08:00)
[2017-01-21] MEDS: METOPROLOL TARTRATE 25 MG TAB PO SCH ×2 (09:00→21:16)
[2017-01-21] MEDS: POLYETHYLENE GLYCOL 17 GM PKG PO SCH (09:13)
[2017-01-21] MEDS: CLOPIDOGREL 75 MG TAB PO SCH (09:13)
[2017-01-21] MEDS: AMIODARONE 200 MG TAB PO SCH ×2 (09:13→21:16)
[2017-01-21] MEDS: ASPIRIN 81 MG CHEW TAB PO SCH (09:13)
[2017-01-21] MEDS: FINASTERIDE 5 MG TAB PO SCH (09:13)
[2017-01-21] MEDS: MULTIVITAMINS/MINERALS THERAPEUTIC TAB PO SCH (09:15)
[2017-01-21] MEDS: MAGNESIUM HYDROXIDE SUSP 30 ML CUP PO SCH (09:15)
[2017-01-21] MEDS: SODIUM CHLORIDE 0.9% FLUSH 10 ML FLUSH IV FLUSH SCH ×2 (09:15→21:22)
[2017-01-21] MEDS: DOCUSATE SODIUM 100 MG CAP PO SCH ×2 (09:15→21:15)
--- NOTE | 2017-01-21 09:41 | RSPPFT ---
DATE OF PROCEDURE: 01/16/17 COMMENTS: Spirometry with normal flow rates and ratios. There is no evidence of airways obstruction or suggestion of airways restriction. IMPRESSION: 1. Essentially normal spirometry.
--- NOTE | 2017-01-21 10:41 | PD.CAR.PN ---
CVT Progress Note Subjective/Hospital Course: Remains pain free and hemodynamically stable OR in am 01/18 Morning beta aneudy held due to symptomatic bradycardia (HR-50) Will re-evaluate post-op 01/18 Procedure: 1. Urgent Off-pump Coronary Artery Bypass Grafting x 4 with left internal mammary artery ([place]) to left anterior descending (LAD), reverse saphenous vein graft to the OM1, reverse saphenous vein graft to the RCA, reverse saphenous vein graft to the Diagonal 1 2. Left Atrial Appendage Excision 3. Circumferential Myocardial Lysis of Adhesions 4. Right Leg Endoscopic Vein [place] 5. Intraoperative Vein Mapping. 01/19 Doing well Transfer telemetry Maintain CT 01/20 D/C CT Wean Oxygen Possible D/C home in am 01/21 Still on oxygen. Wean today BM Home in am Objective: Vital Signs Date Time Temp Pulse Resp B/P Pulse Ox O2 Delivery O2 Flow Rate FiO2 01/21/17 07:49 79 01/21/17 07:48 97.9 76 18 135/72 96 01/21/17 07:46 95 Nasal Cannula 2.00 01/21/17 06:00 76 01/21/17 05:00 70 01/21/17 04:16 96 Nasal Cannula 2.00 01/21/17 04:15 99.1 81 18 117/56 96 01/21/17 04:00 80 01/21/17 03:00 84 01/21/17 02:00 88 01/21/17 01:00 84 01/21/17 00:00 86 01/20/17 23:23 99.2 79 18 121/69 96 01/20/17 23:23 96 Nasal Cannula 2.00 01/20/17 23:00 71 01/20/17 22:00 74 01/20/17 21:25 99.1 01/20/17 21:00 80 01/20/17 20:00 92 01/20/17 19:55 93 21 01/20/17 19:30 100.0 95 18 128/72 96 01/20/17 19:30 96 Nasal Cannula 2.00 01/20/17 19:00 94 01/20/17 18:05 82 01/20/17 17:00 87 01/20/17 16:00 90 01/20/17 15:00 98 Nasal Cannula 2.00 01/20/17 15:00 88 01/20/17 15:00 98.4 94 16 125/75 98 01/20/17 14:10 88 01/20/17 13:46 75 01/20/17 12:07 71 01/20/17 11:15 94 Nasal Cannula 3.00 01/20/17 11:14 98.8 78 18 109/60 94 01/20/17 11:13 68 Labs: Laboratory Tests Test 01/21/17 06:00 White Blood Count 11.0 TH/MM3 (4.0-11.0) Red Blood Count 2.33 MIL/MM3 (4.50-5.90) Hemoglobin 8.0 GM/DL (13.0-17.0) Hematocrit 22.9 % (39.0-51.0) Mean Corpuscular Volume 98.5 FL (80.0-100.0) Mean Corpuscular Hemoglobin 34.4 PG (27.0-34.0) Mean Corpuscular Hemoglobin 35.0 % Concent (32.0-36.0) Red Cell Distribution Width 14.6 % (11.6-17.2) Platelet Count 93 TH/MM3 (150-450) Mean Platelet Volume 8.2 FL (7.0-11.0) Sodium Level 141 MEQ/L (136-145) Potassium Level 3.9 MEQ/L (3.5-5.1) Chloride Level 109 MEQ/L (98-107) Carbon Dioxide Level 26.3 MEQ/L (21.0-32.0) Anion Gap 6 MEQ/L (5-15) Blood Urea Nitrogen 15 MG/DL (7-18) Creatinine 1.21 MG/DL (0.60-1.30) Estimat Glomerular Filtration 59 ML/MIN (>89) Rate Random Glucose 107 MG/DL (74-106) Calcium Level 8.0 MG/DL (8.5-10.1) Phosphorus Level 2.6 MG/DL (2.5-4.9) Magnesium Level 2.1 MG/DL (1.5-2.5) Result Diagram: 01/21/17 0600 01/21/17 0600 (1) CAD in [place] artery (2) S/P CABG x 4 (3) Pericarditis Jose Correa MD January 21, 2017 10:41
[2017-01-21] MEDS ORDERED: METO25TA3 PO (10:44)
[2017-01-21] MEDS ORDERED: DOCU1CAP39 PO (10:44)
[2017-01-21] MEDS ORDERED: FERR325T PO (10:44)
[2017-01-21] MEDS ORDERED: PLAV75TA29 PO (10:44)
[2017-01-21] MEDS ORDERED: AMIO200T PO (10:44)
[2017-01-21] MEDS ORDERED: Aspirin Chew PO (10:44)
--- NOTE | 2017-01-21 10:47 | HHI.FF ---
Face to Face Verification Diagnosis: (1) CAD in [place] artery (2) Pericarditis (3) S/P CABG x 4 Home Health Nursing Order: Medical education Wound care and dressing changes Nursing assessment with vital signs I have seen patient Timothy Dobbs on 01/21/17. My clinical findings support the need for the requested home health care services because: Deconditioned w/ increased weakness I certify that my clinical findings support that this patient is homebound because: Post-op weakness Jose Correa MD January 21, 2017 10:47
[2017-01-21] MEDS: FERROUS SULFATE 325 MG (65 MG ELEMENTAL IRON) TAB PO SCH ×2 (11:24→18:11)
[2017-01-21] MEDS: SENNOSIDES 8.6 MG TAB PO SCH (21:15)
[2017-01-21] MEDS: TAMSULOSIN HCL 0.4 MG CAP PO SCH (21:16)
[2017-01-21] MEDS: ATORVASTATIN 40 MG TAB PO SCH (21:16)
[2017-01-22] VITALS (14 sets, daily range): BP systolic 137–144; BP diastolic 76–79; PULSE 71–89; RESP 18; TEMP 98.7–98.8; O2SAT 93–97
[2017-01-22] MEDS: PANTOPRAZOLE SOD 40 MG DELAYED RELEASE TAB PO SCH (06:10)
[2017-01-22] MEDS: INSULIN ASPART SUPPLEMENTAL SCALE SQ SCH ×2 (06:26→12:11)
[2017-01-22] MEDS: ASPIRIN 81 MG CHEW TAB PO SCH ×2 (09:00→09:23)
--- NOTE | 2017-01-22 09:21 | HHI.DS ---
Discharge Summary Admission Date January 15, 2017 at 16:02 Discharge Date: January 22, 2017 Admitting Diagnosis (1) CAD in [place] artery Diagnosis: Principal (2) Pericarditis Diagnosis: Secondary (3) S/P CABG x 4 CBC/BMP: 01/21/17 0600 01/21/17 0600 Significant Findings Laboratory Tests Test 01/20/17 01/21/17 05:30 06:00 White Blood Count 12.5 TH/MM3 (4.0-11.0) Red Blood Count 2.51 MIL/MM3 2.33 MIL/MM3 (4.50-5.90) (4.50-5.90) Hemoglobin 8.3 GM/DL 8.0 GM/DL (13.0-17.0) (13.0-17.0) Hematocrit 24.6 % 22.9 % (39.0-51.0) (39.0-51.0) Platelet Count 89 TH/MM3 93 TH/MM3 (150-450) (150-450) Lymphocytes (%) (Auto) 77.3 % (9.0-44.0) Lymphocytes # (Auto) 9.7 TH/MM3 (1.0-4.8) Lymphocytes % 73 % (9-44) Platelet Estimate LOW (NORMAL) Ovalocytes 1+ (NORMAL) Estimat Glomerular Filtration 54 ML/MIN (>89) 59 ML/MIN (>89) Rate Calcium Level 7.8 MG/DL 8.0 MG/DL (8.5-10.1) (8.5-10.1) Mean Corpuscular Hemoglobin 34.4 PG (27.0-34.0) Chloride Level 109 MEQ/L (98-107) Random Glucose 107 MG/DL (74-106) Hospital Course Remains pain free and hemodynamically stable OR in am 01/18 Morning beta aneudy held due to symptomatic bradycardia (HR-50) Will re-evaluate post-op 01/18 Procedure: 1. Urgent Off-pump Coronary Artery Bypass Grafting x 4 with left internal mammary artery ([place]) to left anterior descending (LAD), reverse saphenous vein graft to the OM1, reverse saphenous vein graft to the RCA, reverse saphenous vein graft to the Diagonal 1 2. Left Atrial Appendage Excision 3. Circumferential Myocardial Lysis of Adhesions 4. Right Leg Endoscopic Vein [place] 5. Intraoperative Vein Mapping. 6 Doing well Transfer telemetry Maintain CT 01/20 D/C CT Wean Oxygen Possible D/C home in am 01/21 Still on oxygen. Wean today BM Home in am 01/22 D/C Home Discharge Disposition: Disch w/ Home Health Serv Discharge Instructions DIET: Follow Instructions for: Heart Healthy Diet Activities you can perform: Full Weight Bearing, Shower Only-No Bath Activities to avoid: Lifting/Bending, Strenuous Activity, Driving Follow up Referrals: Appointment for Follow Up - 2 Weeks with [facility] - 2 Weeks with Sofya East MD PCP Follow-up - 2 Months New Medications: Amiodarone (Amiodarone) 200 Mg Tab 400 MG PO Q12HR z Days 14 TAB Clopidogrel (Plavix) 75 Mg Tab 75 MG PO DAILY z Days 90 Ref 10 TAB Docusate Sodium (Dok) 100 Mg Cap 100 MG PO BID Constipation Days 30 CAP Ferrous Sulfate (Ferrous Sulfate) 325 Mg Tab 325 MG PO BID@12,17 z Days 28 TAB Metoprolol Tartrate (Metoprolol Tartrate) 25 Mg Tab 25 MG PO Q12HR z Days 30 Ref 6 TAB ([Aspirin Chew]) 81 MG CHEW 81 MG PO DAILY Days 90 Ref 10 TAB.CHEW Continued Medications: Atorvastatin (Atorvastatin) 40 Mg Tab 40 MG PO HS Cholesterol Management #30 Ref 0 TAB Finasteride (Finasteride) 5 Mg Tab 5 MG PO DAILY Do not crush. Manage Prostate Problems #30 Ref 0 TAB Pantoprazole (Pantoprazole) 40 Mg Tab 40 MG PO DAILY Reflux #30 Ref 0 TAB Tamsulosin (Flomax) 0.4 Mg Cap 0.4 MG PO HS Manage Prostate Problems #30 Ref 0 CAP Discontinued Medications: Aspirin (Aspirin) 325 Mg Tab 325 MG PO DAILY #30 Ref 0 TAB Jose Correa MD January 22, 2017 09:21
[2017-01-22] MEDS: MULTIVITAMINS/MINERALS THERAPEUTIC TAB PO SCH (09:23)
[2017-01-22] MEDS: FINASTERIDE 5 MG TAB PO SCH (09:23)
[2017-01-22] MEDS: CLOPIDOGREL 75 MG TAB PO SCH (09:23)
[2017-01-22] MEDS: DOCUSATE SODIUM 100 MG CAP PO SCH (09:23)
[2017-01-22] MEDS: MAGNESIUM HYDROXIDE SUSP 30 ML CUP PO SCH (09:24)
[2017-01-22] MEDS: SODIUM CHLORIDE 0.9% FLUSH 10 ML FLUSH IV FLUSH SCH (09:24)
[2017-01-22] MEDS: POLYETHYLENE GLYCOL 17 GM PKG PO SCH (09:24)
[2017-01-22] MEDS: AMIODARONE 200 MG TAB PO SCH (09:24)
[2017-01-22] MEDS: METOPROLOL TARTRATE 25 MG TAB PO SCH (09:24)
[2017-01-22] MEDS: FERROUS SULFATE 325 MG (65 MG ELEMENTAL IRON) TAB PO SCH (12:11)
== END 2017-01-22 14:23 | disposition home health service (06) | DRG 234 ==
LOC: HDOC 10:38 → HDIC 10:39 → HCIS 15:37 → HDOC 16:02 → HCIS 16:02 → HCVR 01-17 21:28 → HCIN 01-19 12:40
PROVIDERS: ADMIT Internal Medicine Cardiovascular Disease; ATTEND Internal Medicine Cardiovascular Disease
PROC: 4A023N7 Measurement of Cardiac Sampling and Pressure, Left Heart, Percutaneous Approach (ICD-10-PCS; 2017-01-15)
PROC: B2111ZZ Fluoroscopy of Multiple Coronary Arteries using Low Osmolar Contrast (ICD-10-PCS; 2017-01-15)
PROC: B2151ZZ Fluoroscopy of Left Heart using Low Osmolar Contrast (ICD-10-PCS; 2017-01-15)
PROC: 02100Z9 Bypass Coronary Artery, One Artery from Left Internal Mammary, Open Approach (ICD-10-PCS; 2017-01-18)
PROC: 06BP4ZZ Excision of Right Saphenous Vein, Percutaneous Endoscopic Approach (ICD-10-PCS; 2017-01-18)
PROC: 02B70ZK Excision of Left Atrial Appendage, Open Approach (ICD-10-PCS; 2017-01-18)
PROC: 021209W Bypass Coronary Artery, Three Arteries from Aorta with Autologous Venous Tissue, Open Approach (ICD-10-PCS; principal; 2017-01-18 07:18)
DX: I25.110 Atherosclerotic heart disease of native coronary artery with unstable angina pectoris (principal); I31.0 Chronic adhesive pericarditis; R00.1 Bradycardia, unspecified; I08.1 Rheumatic disorders of both mitral and tricuspid valves; C91.11 Chronic lymphocytic leukemia of B-cell type in remission; K21.9 Gastro-esophageal reflux disease without esophagitis; E78.5 Hyperlipidemia, unspecified; I77.810 Thoracic aortic ectasia; K44.9 Diaphragmatic hernia without obstruction or gangrene; N40.0 Benign prostatic hyperplasia without lower urinary tract symptoms; Z85.51 Personal history of malignant neoplasm of bladder; Z92.21 Personal history of antineoplastic chemotherapy; Z90.5 Acquired absence of kidney; Z82.49 Family history of ischemic heart disease and other diseases of the circulatory system; Z87.891 Personal history of nicotine dependence
CPT/HCPCS: 71010; 71020; 76937; 80048; 81001; 82948; 83036; 83735; 84100; 85007; 85014; 85027; 85610; 85730; 86850; 86900; 86901; 86920; 87641; 88305; 93005; 93458; 93880; 93970; 93998; 94002; 94010; 94150; 94640; 94664; 94667; 94668; C1768; C1769; C1893; C9248; J0131; J0171; J0461; J0690; J1644; J1815; J1885; J2250; J2270; J2440; J2720; J3010; J3370; J3475; J3480; J7030; J7040; J7050; J7120; P9045; Q9967

== ENCOUNTER → 2017-02-25 | Outpatient (CLI) | payer MEDICARE ==
[~2017-02-25] MED LIST changes: +AMIO200T PO; -ATOR40TA PO; +ATOR40TA16 PO; +Aspirin Chew PO; +DOCU1CAP39 PO; +FERR325T PO; +FINA5TAB2 PO; +METO25TA3 PO; +PANT40TA3 PO; +PLAV75TA29 PO; -PROS5TAB2 PO; -PROT40TA PO; -TAMS0.4C67 PO; +TAMS5CAP PO; -ZOFR4TAB3 SL
[2017-02-25 13:25] LABS: HEMATOCRIT 35.1 % (39.0-51.0); MEAN CELL VOLUME 101.2 FL (80.0-100.0); MEAN CORPUSCULAR HEMOGLOBIN 32.4 PG (27.0-34.0); PLATELET COUNT 158 TH/MM3 (150-450); RED BLOOD COUNT 3.47 MIL/MM3 (4.50-5.90); RED CELL DISTRIBUTION WIDTH 17.4 % (11.6-17.2); REVIEW FLAG FINAL; WHITE BLOOD COUNT 11.1 TH/MM3 (4.0-11.0)
[2017-02-25 14:23] LABS: ANION GAP 8 MEQ/L (5-15); AST (GOT) 10 U/L (15-37); BICARBONATE 24.6 MEQ/L (21.0-32.0); BLOOD UREA NITROGEN 16 MG/DL (7-18); CHLORIDE 106 MEQ/L (98-107); GLOMERULAR FILTRATION RATE 49 ML/MIN (>89); GLUCOSE,FASTING 83 MG/DL (74-99); POTASSIUM 4.3 MEQ/L (3.5-5.1); SODIUM (NA) 139 MEQ/L (136-145)
[2017-02-25 14:24] LABS: ALT (GPT) 18 U/L (12-78)
[2017-02-25 14:27] LABS: ALKALINE PHOSPHATASE 110 U/L (45-117); HDL CHOLESTEROL 27.9 MG/DL (40.0-60.0); LDL CHOLESTEROL 46 MG/DL (0-99); LDL CHOLESTEROL DIRECT 43 MG/DL (0-99); TOTAL BILIRUBIN ADULT 0.7 MG/DL (0.2-1.0)
== END ==
LOC: PLAB 10:51
PROVIDERS: ATTEND Family Medicine
DX: I25.10 Atherosclerotic heart disease of native coronary artery without angina pectoris (principal); E78.5 Hyperlipidemia, unspecified; I10 Essential (primary) hypertension
CPT/HCPCS: 36415; 80053; 80061; 83721; 85027

== ENCOUNTER → 2017-05-03 | Outpatient (CLI) | payer MEDICARE ==
[2017-05-03 11:16] LABS: HEMATOCRIT 38.6 % (39.0-51.0); MEAN CELL VOLUME 95.9 FL (80.0-100.0); MEAN CORPUSCULAR HEMOGLOBIN 31.9 PG (27.0-34.0); MEAN CORPUSCULAR HGB CONC 33.2 % (32.0-36.0); PLATELET COUNT 126 TH/MM3 (150-450); RED BLOOD COUNT 4.02 MIL/MM3 (4.50-5.90); RED CELL DISTRIBUTION WIDTH 15.5 % (11.6-17.2); REVIEW FLAG FINAL; WHITE BLOOD COUNT 13.6 TH/MM3 (4.0-11.0)
[2017-05-03 11:38] LABS: ANION GAP 5 MEQ/L (5-15); AST (GOT) 13 U/L (15-37); BICARBONATE 24.9 MEQ/L (21.0-32.0); BLOOD UREA NITROGEN 13 MG/DL (7-18); CHLORIDE 110 MEQ/L (98-107); GLOMERULAR FILTRATION RATE 53 ML/MIN (>89); GLUCOSE,FASTING 101 MG/DL (74-99); POTASSIUM 3.8 MEQ/L (3.5-5.1); SODIUM (NA) 140 MEQ/L (136-145)
[2017-05-03 11:39] LABS: ALT (GPT) 17 U/L (12-78)
[2017-05-03 11:49] LABS: ALKALINE PHOSPHATASE 105 U/L (45-117); HDL CHOLESTEROL 32.2 MG/DL (40.0-60.0); LDL CHOLESTEROL 42 MG/DL (0-99); LDL CHOLESTEROL DIRECT 48 MG/DL (0-99); TOTAL BILIRUBIN ADULT 0.8 MG/DL (0.2-1.0)
[2017-05-03 12:17] LABS: HEMOGLOBIN A1a 1.1 %; HEMOGLOBIN A1b 0.7 %; HEMOGLOBIN Ao 87.1 %; HEMOGLOBIN F 0.8 %; HEMOGLOBIN LA1C 1.8 %; HEMOGLOBIN P3 3.4 %
== END ==
LOC: PLAB 09:24
PROVIDERS: ATTEND Family Medicine
DX: I25.10 Atherosclerotic heart disease of native coronary artery without angina pectoris (principal); R53.83 Other fatigue; E78.2 Mixed hyperlipidemia; I10 Essential (primary) hypertension; R73.01 Impaired fasting glucose; C64.2 Malignant neoplasm of left kidney, except renal pelvis
CPT/HCPCS: 36415; 80053; 80061; 83036; 83721; 84443; 85027

== ENCOUNTER → 2017-07-30 | Outpatient (CLI) | payer MEDICARE ==
[2017-07-30 13:08] LABS: HEMATOCRIT 38.6 % (39.0-51.0); MEAN CELL VOLUME 97.1 FL (80.0-100.0); PLATELET COUNT 122 TH/MM3 (150-450); RED BLOOD COUNT 3.98 MIL/MM3 (4.50-5.90); RED CELL DISTRIBUTION WIDTH 15.9 % (11.6-17.2); REVIEW FLAG FINAL; WHITE BLOOD COUNT 25.9 TH/MM3 (4.0-11.0)
[2017-07-30 13:41] LABS: ANION GAP 7 MEQ/L (5-15); AST (GOT) 12 U/L (15-37); BICARBONATE 24.3 MEQ/L (21.0-32.0); BLOOD UREA NITROGEN 21 MG/DL (7-18); CHLORIDE 109 MEQ/L (98-107); GLOMERULAR FILTRATION RATE 47 ML/MIN (>89); POTASSIUM 4.3 MEQ/L (3.5-5.1); SODIUM (NA) 140 MEQ/L (136-145)
[2017-07-30 13:47] LABS: ALKALINE PHOSPHATASE 95 U/L (45-117); ALT (GPT) 17 U/L (12-78); GLUCOSE,FASTING 99 MG/DL (74-99); HDL CHOLESTEROL 41.1 MG/DL (40.0-60.0); LDL CHOLESTEROL 38 MG/DL (0-99); LDL CHOLESTEROL DIRECT 64 MG/DL (0-99); TOTAL BILIRUBIN ADULT 0.7 MG/DL (0.2-1.0)
== END ==
LOC: PLAB 10:01
PROVIDERS: ATTEND Family Medicine
DX: I25.10 Atherosclerotic heart disease of native coronary artery without angina pectoris (principal); E78.2 Mixed hyperlipidemia; I10 Essential (primary) hypertension
CPT/HCPCS: 36415; 80053; 80061; 83721; 85027

== ENCOUNTER → 2017-11-01 | Outpatient (CLI) | payer MEDICARE ==
[2017-11-01 14:04] LABS: HEMATOCRIT 38.9 % (39.0-51.0); HEMOGLOBIN 12.9 GM/DL (13.0-17.0); MEAN CELL VOLUME 96.7 FL (80.0-100.0); MEAN CORPUSCULAR HEMOGLOBIN 32.1 PG (27.0-34.0); MEAN CORPUSCULAR HGB CONC 33.2 % (32.0-36.0); MEAN PLATELET VOLUME 7.8 FL (7.0-11.0); PLATELET COUNT 121 TH/MM3 (150-450); RED BLOOD COUNT 4.03 MIL/MM3 (4.50-5.90); RED CELL DISTRIBUTION WIDTH 15.5 % (11.6-17.2)
[2017-11-01 14:06] LABS: ALBUMIN 3.3 GM/DL (3.4-5.0); BICARBONATE 24.3 MEQ/L (21.0-32.0); BLOOD UREA NITROGEN 17 MG/DL (7-18); CALCIUM 8.1 MG/DL (8.5-10.1); CHLORIDE 111 MEQ/L (98-107); CHOLESTEROL 86 MG/DL (120-200); GLUCOSE,FASTING 100 MG/DL (74-99); SODIUM (NA) 141 MEQ/L (136-145)
[2017-11-01 14:09] LABS: ALKALINE PHOSPHATASE 98 U/L (45-117); ALT (GPT) 32 U/L (12-78); AST (GOT) 22 U/L (15-37); CHOLESTEROL/ HDL RATIO 4.05 RATIO; CREATININE 1.26 MG/DL (0.60-1.30); GLOMERULAR FILTRATION RATE 56 ML/MIN (>89); HDL CHOLESTEROL 21.2 MG/DL (40.0-60.0); LDL CHOLESTEROL 45 MG/DL (0-99); LDL CHOLESTEROL DIRECT 59 MG/DL (0-99); TOTAL BILIRUBIN ADULT 0.6 MG/DL (0.2-1.0); TOTAL PROTEIN 6.3 GM/DL (6.4-8.2); TRIGLYCERIDES 97 MG/DL (42-150)
== END ==
LOC: PLAB 10:16
PROVIDERS: ATTEND Family Medicine
DX: I25.10 Atherosclerotic heart disease of native coronary artery without angina pectoris (principal); N18.3 Chronic kidney disease, stage 3 (moderate); E78.2 Mixed hyperlipidemia; C91.90 Lymphoid leukemia, unspecified not having achieved remission
CPT/HCPCS: 36415; 80053; 80061; 83721; 85027

== ENCOUNTER → 2018-02-04 | Outpatient (CLI) | payer MEDICARE ==
[2018-02-04 14:01] LABS: ALBUMIN 3.8 GM/DL (3.4-5.0); AST (GOT) 12 U/L (15-37); BICARBONATE 25.2 MEQ/L (21.0-32.0); BLOOD UREA NITROGEN 19 MG/DL (7-18); CALCIUM 8.7 MG/DL (8.5-10.1); CHLORIDE 108 MEQ/L (98-107); CREATININE 1.52 MG/DL (0.60-1.30); GLOMERULAR FILTRATION RATE 45 ML/MIN (>89); GLUCOSE,FASTING 100 MG/DL (74-99); SODIUM (NA) 141 MEQ/L (136-145)
[2018-02-04 14:03] LABS: CHOLESTEROL 86 MG/DL (120-200); HEMATOCRIT 39.7 % (39.0-51.0); HEMOGLOBIN 13.2 GM/DL (13.0-17.0); MEAN CELL VOLUME 98.2 FL (80.0-100.0); MEAN CORPUSCULAR HEMOGLOBIN 32.6 PG (27.0-34.0); MEAN CORPUSCULAR HGB CONC 33.2 % (32.0-36.0); MEAN PLATELET VOLUME 8.4 FL (7.0-11.0); PLATELET COUNT 125 TH/MM3 (150-450); RED BLOOD COUNT 4.04 MIL/MM3 (4.50-5.90); RED CELL DISTRIBUTION WIDTH 14.7 % (11.6-17.2); WHITE BLOOD COUNT 19.4 TH/MM3 (4.0-11.0)
[2018-02-04 14:06] LABS: ALKALINE PHOSPHATASE 94 U/L (45-117); ALT (GPT) 20 U/L (12-78); CHOLESTEROL/ HDL RATIO 2.81 RATIO; HDL CHOLESTEROL 30.5 MG/DL (40.0-60.0); LDL CHOLESTEROL 45 MG/DL (0-99); LDL CHOLESTEROL DIRECT 60 MG/DL (0-99); TOTAL BILIRUBIN ADULT 0.8 MG/DL (0.2-1.0); TOTAL PROTEIN 6.1 GM/DL (6.4-8.2); TRIGLYCERIDES 55 MG/DL (42-150)
== END ==
LOC: PLAB 09:34
PROVIDERS: ATTEND Family Medicine
DX: I25.10 Atherosclerotic heart disease of native coronary artery without angina pectoris (principal); E78.4 Other hyperlipidemia
CPT/HCPCS: 36415; 80053; 80061; 83721; 85027

== ENCOUNTER 2018-10-31 06:22 | Observation (INO) ==
--- NOTE | 2018-10-31 07:38 | ED ---
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 Muñiz; presents to the emergency room with complaints of chest pain. 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 East. Patient reports that since yesterday, he has been having chest pain. Patient reports that chest pain is substernal in nature, reports that it feels like a "pinching sensation" to his chest. Patient denies any diaphoresis or nausea or vomiting with the symptoms. Nothing seems to make his symptoms better or worse. Patient thought that his symptoms were due to his recent cholecystectomy on October 08, reports that since he did not get better today, he figured he may be his heart. Reports that he has been having problems with having chest pains, they initially thought it was due to the chemotherapy for his CLL but then he ended up having cholecystitis and thought that his chest pain was from cholecystitis. Reports that despite having been taken off the chemotherapy medications as well as having a cholecystectomy, he persistently has chest pain. There has been talks with him and Dr. East about having another cardiac catheterization to determine why he is still having this chest pain. As per his chest pain, patient reports that nothing makes his symptoms better or worse. Pain is constant. Patient did take a baby aspirin prior to coming to the emergency room. MD complaint: Reports chest pain STEMI Alert: No Onset (ago): day(s) Duration: constant Pain location: Reports substernal Severity: moderate Severity scale (1-10): 4 Quality: Reports aching Pain radiation: Reports none Relieving factors: nothing Exacerbating factors: nothing Associated symptoms: Reports dyspnea Treatments prior to arrival chest pain: Reports aspirin Related Data Home Medications Medication Instructions Recorded Confirmed aspirin [Aspir-81] 81 mg PO DAILY 09/15/18 10/31/18 atorvastatin 40 mg PO QPM 09/15/18 10/31/18 finasteride 5 mg PO QTUTHSU 09/15/18 10/31/18 furosemide 20 mg PO DAILY 09/15/18 10/31/18 ondansetron HCl [Zofran] 4 mg PO TID 09/15/18 10/31/18 pantoprazole 40 mg PO BID 09/15/18 10/31/18 tamsulosin 0.4 mg PO DAILY 09/15/18 10/31/18 Previous Rx's Medication Instructions Recorded ondansetron HCl [Zofran] 4 mg PO Q6H PRN #10 tab 10/10/18 Allergies Allergy/AdvReac Type Severity Reaction Status Date / Time ciprofloxacin Allergy Intermediate Itching Verified 10/31/18 06:23 propoxyphene Allergy Intermediate Itching Verified 10/31/18 06:23 sulfamethoxazole Allergy Intermediate Hives Verified 10/31/18 06:23 Review of Systems ROS: all other systems reviewed are negative [facility] Medical History Medical History BPH (benign prostatic hyperplasia) (Acute) CAD (coronary artery disease) (Acute) CLL (chronic lymphocytic leukemia) (Acute) FH: cholecystectomy (Acute) GERD (gastroesophageal reflux disease) (Acute) Hiatal hernia (Acute) Hx of renal cell carcinoma (Acute) Hyperlipidemia (Acute) Schatzki's ring of distal esophagus (Acute) Surgical History Surgical History History of nephrectomy (Acute) Hx of CABG (Acute) Hx of cataract surgery (Acute) Social History Social History Substance History: No History of Abuse Second Hand Smoke Exposure: No Smoking Status: Former smoker Tobacco Type: Cigarettes How Often Do You Have a Drink Containing Alcohol: Monthly or less Recent Out of Country Travel within the Last 8 Weeks: No Immunization History Tetanus Immunization: >5 Years Exam Narrative Exam Narrative: GENERAL: Moderate distress SKIN: Focused skin assessment warm/dry. HEAD: Atraumatic. Normocephalic. EYES: Pupils equal and round. No scleral icterus. No injection or drainage. ENT: No nasal bleeding or discharge. Mucous membranes pink and moist. NECK: Trachea midline. No JVD. CARDIOVASCULAR: Regular rate and rhythm. No murmur appreciated. RESPIRATORY: No accessory muscle use. Clear to auscultation. Breath sounds equal bilaterally. GASTROINTESTINAL: Abdomen soft, non-tender, nondistended. Hepatic and splenic margins not palpable. Abdominal incisions are clean, dry, intact with no drainage or purulence or no signs of infection MUSCULOSKELETAL: No obvious deformities. No clubbing. No cyanosis. No edema. NEUROLOGICAL: Awake and alert. No obvious cranial nerve deficits. Motor grossly within normal limits. Normal speech. PSYCHIATRIC: Appropriate mood and affect; insight and judgment normal. Course Initial Documented Vital Signs Temperature 98.8 F 10/31/18 06:23 Pulse Rate 97 H 10/31/18 06:23 Respiratory Rate 16 10/31/18 06:23 Blood Pressure 151/69 H 10/31/18 06:23 Pulse Oximetry 98 10/31/18 06:23 Last Documented Vital Signs Temperature 98.4 F 10/31/18 08:02 Pulse Rate 91 H 10/31/18 08:02 Respiratory Rate 15 10/31/18 08:06 Blood Pressure 101/58 L 10/31/18 08:02 Pulse Oximetry 99 10/31/18 08:02 Medical Decision Making MDM Narrative Medical decision making narrative: During the course of the patients emergency department visit, the patients history, examination, and differential diagnosis were reviewed with the patient. The patient was placed on a garland machine operator with oximetry and frequent blood pressure monitoring. The patient had an IV access obtained and blood work sent for analysis. The patient was initially provided sublingual nitroglycerin. Patient has taken an aspirin at home. The patients laboratory studies were reviewed and remarkable for WBC 6.3, hemoglobin 14.3, hematocrit 42.5, platelets 169 Sodium 138, potassium 3.9, BUN 13, creatinine 1.69 which is baseline, glucose 105, CO2 26.6 Troponin less than 0.02, BNP 43 Lipase 101 Radiology studies were reviewed and remarkable for X-ray of the chest shows no focal or acute intrathoracic disease. Call made to Dr. East's service for further recommendations on plan of care Reviewed case with Dr. Marrero - will admit to medicine Dr. Marrero evaluated patient in the emergency room, will request patient to be ruled out Case reviewed with Dr. Arellano who accepts patient to service under Dr. anderson Medical Screen Exam Complete: Yes Emergency Medical Condition: Yes Differential Diagnosis Differential Diagnosis: ACS, arrhythmia, electrolyte abnormality, PE, CLL, pancreatitis Medical Records Medical records reviewed: Yes I reviewed the patient's medical records. Lab Data Lab results reviewed: Yes I reviewed the patient's lab results. Result diagrams: 10/31/18 07:33 10/31/18 07:33 Lab Results 10/31/18 10/31/18 10/31/18 Range/Units 07:33 07:33 07:33 WBC 6.3 (4.0-11.0) th/mm3 RBC 4.61 (4.50-5.90) mil/mm3 Hgb 14.3 (13.0-17.0) gm/dL Hct 42.5 (39.0-51.0) % MCV 92.2 (80.0-100.0) fL MCH 31.1 (27.0-34.0) pg MCHC 33.7 (32.0-36.0) % RDW 18.5 H (11.6-17.2) % Plt Count 169 (150-450) th/mm3 MPV 9.1 (7.0-11.0) fL Prelim Diff (Auto) Slide review pending Neut % (Auto) 50.1 (16.0-70.0) % Lymph % (Auto) 47.3 H (9.0-44.0) % [place] % (Auto) 2.0 (0.0-8.0) % Eos % (Auto) 0.4 (0.0-4.0) % Baso % (Auto) 0.2 (0.0-2.0) % Neut # (Auto) 3.2 (1.8-7.7) th/mm3 Lymph # (Auto) 3.0 (1.0-4.8) th/mm3 [place] # (Auto) 0.1 (0.0-0.9) th/mm3 Eos # (Auto) 0.0 (0.0-0.4) th/mm3 Baso # (Auto) 0.0 (0.0-0.2) th/mm3 WBC Differential Manual diff final Seg Neuts % (Manual) 49 (16-70) % Lymphocytes % (Manual) 50 H (9-44) % Monocytes % (Manual) 1 (0-8) % Abs Neuts (Manual) 3.1 (1.8-7.7) th/mm3 Differential Comment . Smudge Cells Present H (None) Platelet Estimate Normal (Normal) Platelet Morphology Normal (Normal) Ovalocytes 1+ H (None) PT 10.6 (9.8-11.6) sec INR 1.0 Ratio APTT 27.2 (23.4-31.7) sec Sodium 138 (136-145) meq/L Potassium 3.9 (3.5-5.1) meq/L Chloride 105 (98-107) meq/L Carbon Dioxide 26.6 (21.0-32.0) meq/L Anion Gap 6 (5-15) meq/L BUN 13 (7-18) mg/dL Creatinine 1.69 H (0.60-1.30) mg/dL Estimated GFR 40 L (>89) mL/min Random Glucose 105 (74-106) mg/dL Calcium 8.6 (8.5-10.1) mg/dL Total Bilirubin 1.6 H (0.2-1.0) mg/dL AST 21 (15-37) U/L ALT 16 (12-78) U/L Alkaline Phosphatase 105 (45-117) U/L Total Creatine Kinase 64 (39-308) U/L Troponin I Less than 0.02 L (0.02-0.05) ng/mL B-Natriuretic Peptide (0-100) pg/mL Total Protein 7.0 (6.4-8.2) g/dL Albumin 3.9 (3.4-5.0) g/dL Lipase 101 (73-393) U/L 10/31/18 Range/Units 07:33 WBC (4.0-11.0) th/mm3 RBC (4.50-5.90) mil/mm3 Hgb (13.0-17.0) gm/dL Hct (39.0-51.0) % MCV (80.0-100.0) fL MCH (27.0-34.0) pg MCHC (32.0-36.0) % RDW (11.6-17.2) % Plt Count (150-450) th/mm3 MPV (7.0-11.0) fL Prelim Diff (Auto) Neut % (Auto) (16.0-70.0) % Lymph % (Auto) (9.0-44.0) % [place] % (Auto) (0.0-8.0) % Eos % (Auto) (0.0-4.0) % Baso % (Auto) (0.0-2.0) % Neut # (Auto) (1.8-7.7) th/mm3 Lymph # (Auto) (1.0-4.8) th/mm3 [place] # (Auto) (0.0-0.9) th/mm3 Eos # (Auto) (0.0-0.4) th/mm3 Baso # (Auto) (0.0-0.2) th/mm3 WBC Differential Seg Neuts % (Manual) (16-70) % Lymphocytes % (Manual) (9-44) % Monocytes % (Manual) (0-8) % Abs Neuts (Manual) (1.8-7.7) th/mm3 Differential Comment Smudge Cells (None) Platelet Estimate (Normal) Platelet Morphology (Normal) Ovalocytes (None) PT (9.8-11.6) sec INR Ratio APTT (23.4-31.7) sec Sodium (136-145) meq/L Potassium (3.5-5.1) meq/L Chloride (98-107) meq/L Carbon Dioxide (21.0-32.0) meq/L Anion Gap (5-15) meq/L BUN (7-18) mg/dL Creatinine (0.60-1.30) mg/dL Estimated GFR (>89) mL/min Random Glucose (74-106) mg/dL Calcium (8.5-10.1) mg/dL Total Bilirubin (0.2-1.0) mg/dL AST (15-37) U/L ALT (12-78) U/L Alkaline Phosphatase (45-117) U/L Total Creatine Kinase (39-308) U/L Troponin I (0.02-0.05) ng/mL B-Natriuretic Peptide 43 (0-100) pg/mL Total Protein (6.4-8.2) g/dL Albumin (3.4-5.0) g/dL Lipase (73-393) U/L Imaging Data Attestation: I personally reviewed and interpreted this imaging study as follows : Radiologist's impression: Chest X-Ray 10/31/18 07:29 CONCLUSION: No focal or acute intrathoracic disease. Stable examination. ECG Data EKG Prior to Arrival: No Attestation: I personally reviewed and interpreted this ECG as follows: Interpretation: EKG at 0639: NSR at 90bpm, qt/qtc: 345/392, no acute st or t wave changes Discharge Plan Discharge Disposition Patient Disposition: ED Admit(ED Internal Use Only) Discharge Condition Condition: Stable Discharge Details Diagnosis: Chest pain Physicians Team ED Provider: Mary Stevens Primary Care Provider: Isaak Herbert Rxs /Orders / Referrals /Forms Prescriptions: No Action atorvastatin 40 mg Tablet 40 mg PO QPM RF: 0 ondansetron HCl [Zofran] 4 mg Tablet 4 mg PO TID RF: 0 aspirin [Aspir-81] 81 mg Tablet,Delayed Release (Dr/Ec) 81 mg PO DAILY RF: 0 tamsulosin 0.4 mg Capsule 0.4 mg PO DAILY RF: 0 pantoprazole 40 mg Tablet,Delayed Release (Dr/Ec) 40 mg PO BID RF: 0 furosemide 20 mg Tablet 20 mg PO DAILY RF: 0 finasteride 5 mg Tablet 5 mg PO QTUTHSU RF: 0 ondansetron HCl [Zofran] 4 mg Tablet 4 mg PO Q6H PRN (Reason: Nausea And Vomiting) Qty: 10 RF: 2 Discharge Instructions Patient Printed Instructions: Chest Pain (ED) Discharge Interventions Interventions: Vital Signs Last Done: 10/31/18 07:05 Status ED Status: With Doctor
--- NOTE | 2018-10-31 08:05 | XR ---
EXAM DATE: 10/31/2018 8:01 AM EST AGE/SEX: 73 years / Male INDICATIONS: Chest pain. CLINICAL DATA: This is the patient's initial encounter. Patient reports that signs and symptoms have been present for 1 day and indicates a pain score of 5/10. MEDICAL/SURGICAL HISTORY: Congestive heart failure. CABG. COMPARISON: [facility], XR CHEST PA AND LAT, 02/06/2017. . FINDINGS: A single AP view of the chest demonstrates the lungs to be symmetrically aerated without evidence of mass, infiltrate or effusion. The previously noted small left effusion has resolved. The cardiomedias tinal contours are unremarkable and stable. There is evidence of previous cardiothoracic surgery.. O sseous structures are intact and stable. CONCLUSION: No focal or acute intrathoracic disease. Stable examination. Electronically signed by: Chon Bell MD Board Certified Radiologist 10/31/2018 8:04 AM EST
[2018-10-31 08:08] LABS: Baso % (Auto) 0.2 % (0.0-2.0); Eos % (Auto) 0.4 % (0.0-4.0); Hematocrit 42.5 % (39.0-51.0); Hemoglobin 14.3 gm/dL (13.0-17.0); Lymph % (Auto) 47.3 % (9.0-44.0); Mean Corpuscular HGB Conc 33.7 % (32.0-36.0); Mean Corpuscular Hemoglobin 31.1 pg (27.0-34.0); Mean Corpuscular Volume 92.2 fL (80.0-100.0); Mean Platelet Volume 9.1 fL (7.0-11.0); Mono # (Auto) 0.1 th/mm3 (0.0-0.9); Neut # (Auto) 3.2 th/mm3 (1.8-7.7); Neut % (Auto) 50.1 % (16.0-70.0); Platelet Count 169 th/mm3 (150-450); Red Blood Count 4.61 mil/mm3 (4.50-5.90); Red Cell Distribution Width 18.5 % (11.6-17.2); White Blood Count 6.3 th/mm3 (4.0-11.0)
[2018-10-31 08:26] LABS: Activated Partial Thrombo Time 27.2 sec (23.4-31.7)
[2018-10-31 08:28] LABS: Alanine Aminotransferase 16 U/L (12-78); Albumin 3.9 g/dL (3.4-5.0); Alkaline Phosphatase 105 U/L (45-117); Anion Gap 6 meq/L (5-15); Aspartate Aminotransferase 21 U/L (15-37); Blood Urea Nitrogen 13 mg/dL (7-18); Calcium 8.6 mg/dL (8.5-10.1); Carbon Dioxide 26.6 meq/L (21.0-32.0); Chloride 105 meq/L (98-107); Creatine Kinase 64 U/L (39-308); Glomerular Filtration Rate 40 mL/min (>89); Glucose,Random 105 mg/dL (74-106); Lipase 101 U/L (73-393); Potassium 3.9 meq/L (3.5-5.1); Prothrombin Time 10.6 sec (9.8-11.6); Sodium 138 meq/L (136-145)
[2018-10-31 08:52] LABS: Monocytes 1 % (0-8)
[2018-10-31 08:53] LABS: Lymphocytes 50 % (9-44); Smudge Cells Present
[2018-10-31 08:54] LABS: Ovalocytes 1+; Platelet Estimate Normal (Normal); Platelet Morphology Normal (Normal)
--- NOTE | 2018-10-31 09:57 | P.HPFP ---
History of Present Illness Primary Care Physician: Isaak Herbert MD <Dayana Pérez - 10/31/18 21:22> Isaak Herbert MD <Truman Banks - 10/31/18 09:57> History of Present Illness: This patient is a 73-year-old male with a history of CAD, CABG, and CLL, BPH, who presents to the emergency room with complaints of chest pain. 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 He says that the pain begins just lateral to his left nipple and radiates to just below the left nipple when taking a deep breath. He described the pain as sharp. Yesterday the pain was intermittent but became more constant this morning. Yesterday he says the pain was intermittent, and reports that the pain faded in and out but cannot recall the frequency or duration. At the time he didn't observe any alleviating or exacerbating factors , he did however take his daily 81mg aspirin. Last night the pain came back and gave him difficulty sleeping. At about 4 this morning the pain became more constant and intense. This morning he says this morning the pain was a 4/10 but now a 2/10. The pain is not related to activity but is related to breathing and position. He says that he is better sitting up and worse when laying on his side. It is not related to eating. The pain started lateral to this left pec but radiates to just below his left nipple when he inspires. Took nitro in the ED and it took the edge off but did not relieve his pain. Of note: Patient reports that he has had pleurisy twice before and says this is similar but pleurisy was much more intense. PMHx: Kidney cancer treated with nephrectomy, CLL diagnosed 2013 treated with chemotherapy and gamma globulin therapy, last does Aug 20 but in between treatments now, Hyperlipidemia, BPH, GERD with shotzsky ring. 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 FMHx: Father 51 and brother was 49 and both from MIs. Allergies: Darvocet caused eye dilation, Cipro causes nausea and sensation of skin tightening but no swelling, sulfamethoxazole causes nausea. Social: [employer], lives with of 49 years. Has 1 one child who is in good health. 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 Prior smoker of 1 ppd for 20 years and quit in 1994. Alcohol use approx 2 drinks a month. No illicit drug use. Code: Full Cards: Dr. East PCP: Dr. Isaak Herbert Onc: Dr. Melvin Urologist: Dr. Muñiz GI: Dr. Ho <Adan HannahTruman 10/31/18 13:37> - Diagnosis (1) Chest pain (2) CAD (coronary artery disease) (3) History of four vessel coronary artery bypass graft (4) CLL (chronic lymphocytic leukemia) (5) YAYO (acute kidney injury) (6) Serum total bilirubin elevated (7) BPH (benign prostatic hyperplasia) (8) GERD (gastroesophageal reflux disease) (9) Nutrition, metabolism, and development symptoms <Dayana Pérez - 10/31/18 21:22> (1) Chest pain (2) CAD (coronary artery disease) (3) History of four vessel coronary artery bypass graft (4) CLL (chronic lymphocytic leukemia) (5) YAYO (acute kidney injury) (6) Serum total bilirubin elevated (7) BPH (benign prostatic hyperplasia) (8) GERD (gastroesophageal reflux disease) (9) Nutrition, metabolism, and development symptoms <Arellano HannahTruman 10/31/18 15:55> Review of Systems Constitutional: Denies chills, Denies fever(s), Denies headache(s), Denies dizziness, Eyes: Denies change in vision, Denies double vision, Denies blurry vision Cardiovascular: Chest pain as stated in HPI, Denies fast heart rate, Denies rapid, pounding, or irregular heartbeat Respiratory: Denies shortness of breath or wheezing Gastrointestinal: Denies abdominal pain, Denies constipation, Denies loose stools, Denies nausea, Denies vomiting Genitourinary: Denies difficulty urinating, Denies painful urination, Denies urinary frequency, Denies blood in urine <Adan HannahTruman 10/31/18 13:37> PMFSH - History History Provided By: Patient <Truman Banks 10/31/18 09:57> - Medical History Medical History: Medical History (Last Reviewed 10/31/18 @ 07:37 by Mary Stevens) FH: cholecystectomy BPH (benign prostatic hyperplasia) CAD (coronary artery disease) CLL (chronic lymphocytic leukemia) GERD (gastroesophageal reflux disease) Hiatal hernia Hx of renal cell carcinoma Hyperlipidemia Schatzki's ring of distal esophagus <Dayana Pérez - 10/31/18 21:22> Medical History (Last Reviewed 10/31/18 @ 07:37 by Mary Stevens) FH: cholecystectomy BPH (benign prostatic hyperplasia) CAD (coronary artery disease) CLL (chronic lymphocytic leukemia) GERD (gastroesophageal reflux disease) Hiatal hernia Hx of renal cell carcinoma Hyperlipidemia Schatzki's ring of distal esophagus <Truman Banks 10/31/18 09:57> - Surgical History Surgical History: Surgical History (Last Reviewed 10/31/18 @ 07:37 by Mary Stevens) History of nephrectomy Hx of CABG Hx of cataract surgery <ElisaDayana - 10/31/18 21:22> Surgical History (Last Reviewed 10/31/18 @ 07:37 by Mary Stevens) History of nephrectomy Hx of CABG Hx of cataract surgery <Truman Banks 10/31/18 09:57> - Tobacco History Second Hand Smoke Exposure: No <Truman Banks 10/31/18 09:57> Tobacco Use In Past 30 Days: No <Truman Banks 10/31/18 09:57> Smoking Status: Former smoker <Truman Banks 10/31/18 09:57> Tobacco Type: Cigarettes <Truamn Banks 10/31/18 09:57> - Alcohol History How Often Do You Have a Drink Containing Alcohol: Monthly or less <Truman Banks 10/31/18 09:57> - Substance Use History Substance History: No History of Abuse <Truman Banks 10/31/18 09:57> - Travel History Recent Travel Out of the Country Within the Last 8 Weeks: No <Truman Banks 10/31/18 09:57> - Immunization History Tetanus Immunization: >5 Years <Truman Banks 10/31/18 09:57> Medications and Allergies Allergies Allergy/AdvReac Type Severity Reaction Status Date / Time ciprofloxacin Allergy Intermediate Itching Verified 10/31/18 06:23 propoxyphene Allergy Intermediate Itching Verified 10/31/18 06:23 sulfamethoxazole Allergy Intermediate Hives Verified 10/31/18 06:23 <Dayana Pérez - 10/31/18 21:22> Home Medications Medication Instructions Recorded Confirmed Type aspirin [Aspir-81] 81 mg PO DAILY 09/15/18 10/31/18 History atorvastatin 40 mg PO QPM 09/15/18 10/31/18 History finasteride 5 mg PO QTUTHSU 09/15/18 10/31/18 History furosemide 20 mg PO DAILY 09/15/18 10/31/18 History ondansetron HCl [Zofran] 4 mg PO TID 09/15/18 10/31/18 History pantoprazole 40 mg PO BID 09/15/18 10/31/18 History tamsulosin 0.4 mg PO DAILY 09/15/18 10/31/18 History <Dayana Pérez - 10/31/18 21:22> Active Medications: Active Medications Acetaminophen (Tylenol) 650 mg PO Q4H PRN PRN Reason: Temp > 100.4 Al Hydroxide/Mg Hydroxide (Milk Of Magnesia Liq) 30 ml PO Q12H PRN PRN Reason: Mild Constipation Aspirin (Ecotrin) 81 mg PO DAILY [facility] Last Admin: 10/31/18 13:48 Dose: 81 mg Atorvastatin Calcium (Lipitor) 40 mg PO DAILY@1800 [facility] Last Admin: 10/31/18 17:16 Dose: 40 mg Bisacodyl (Dulcolax Supp) 10 mg RECTAL DAILY PRN PRN Reason: SEVERE CONSITIPATION Enoxaparin Sodium (Lovenox Inj) 40 mg SQ Q24H [facility] Last Admin: 10/31/18 11:20 Dose: 40 mg [facility]asteride (Proscar) [facility] Furosemide (Lasix) 20 mg PO DAILY [facility] Sodium Chloride (Ns Inj) 1,000 mls @ 65 mls/hr IV.CONT .[id number] [facility] Last Infusion: 10/31/18 17:20 Dose: 65 mls/hr Lactulose (Lactulose Liq) 30 ml PO DAILY PRN PRN Reason: SEVERE CONSITIPATION Lisinopril (Prinivil) 2.5 mg PO DAILY [facility] Metoprolol Tartrate (Lopressor) 25 mg PO BID [facility] Miscellaneous (Pill Splitter) 1 each OTHER UNSCH PRN PRN Reason: SEE LABEL COMMENTS Morphine Sulfate (Morphine Inj) 2 mg IV.PUSH Q3H PRN PRN Reason: PAIN SCALE 6 TO 10 Nitroglycerin (Nitro-Bid 2% Oint) 0.5 inch TOPICAL Q6H PRN PRN Reason: CHEST PAIN Ondansetron HCl (Zofran Inj) 4 mg IV.PUSH Q6H PRN PRN Reason: NAUSEA OR VOMITING Pantoprazole Sodium (Protonix) 40 mg PO BID [facility] Senna/Docusate Sodium (Isabel-Colace) 1 tab PO BID [facility] Sennosides (Senokot) 17.2 mg PO Q12H PRN PRN Reason: Moderate Constipation Sodium Chloride (Ns Flush) 2 ml IV.FLUSH BID [facility] Sodium Chloride (Ns Flush) 2 ml IV.FLUSH UNSCH PRN PRN Reason: FLUSH AFTER USING IV ACCESS Tamsulosin HCl (Flomax) 0.4 mg PO DAILY [facility] <Dayana Pérez - 10/31/18 21:22> Active Medications Sodium Chloride (Ns Flush) 2 ml IV.FLUSH UNSCH PRN PRN Reason: FLUSH AFTER USING IV ACCESS Last Admin: 10/31/18 07:47 Dose: 2 ml <Truman Banks O - 10/31/18 09:57> Exam Vital signs: Vital Signs 10/31/18 06:23 10/31/18 06:50 10/31/18 07:05 Temperature 98.8 F 98.5 F Pulse Rate 97 H 87 82 Respiratory Rate 16 18 18 Blood Pressure 151/69 H 139/68 125/70 Pulse Oximetry 98 95 10/31/18 07:29 10/31/18 08:02 10/31/18 08:06 Temperature 98.4 F 98.4 F Pulse Rate 89 91 H Respiratory Rate 17 16 15 Blood Pressure 105/62 101/58 L Pulse Oximetry 99 99 10/31/18 10:03 10/31/18 10:18 10/31/18 10:20 Temperature 98.2 F 98.4 F Pulse Rate 89 80 Respiratory Rate 16 18 Blood Pressure 104/56 L 115/59 L Pulse Oximetry 96 97 10/31/18 11:00 10/31/18 12:15 10/31/18 13:49 Temperature 98.2 F 98.1 F 97.8 F Pulse Rate 75 87 79 Respiratory Rate 18 22 17 Blood Pressure 116/55 L 121/59 L 135/64 Pulse Oximetry 96 96 96 10/31/18 15:34 10/31/18 19:34 Temperature 98.3 F 99.3 F Pulse Rate 75 84 Respiratory Rate 16 16 Blood Pressure 141/63 H 147/67 H Pulse Oximetry 97 96 Intake & Output 10/31/18 10/31/18 11/01/18 06:59 18:59 06:59 Intake Total 163 / 163 Balance 163 / 163 Weight 90.265 kg Intake: IV 163 / 163 NS Inj 1,000 ML @ 65 mls/hr IV. 163 / 163 CONT .[id number] [facility] Rx#:[id number] Other: Date of Last Bowel Movement 10/30/18 <Dayana Pérez - 10/31/18 21:22> Vital Signs 10/31/18 06:23 10/31/18 06:50 10/31/18 07:05 Temperature 98.8 F 98.5 F Pulse Rate 97 H 87 82 Respiratory Rate 16 18 18 Blood Pressure 151/69 H 139/68 125/70 Pulse Oximetry 98 95 10/31/18 07:29 10/31/18 08:02 10/31/18 08:06 Temperature 98.4 F 98.4 F Pulse Rate 89 91 H Respiratory Rate 17 16 15 Blood Pressure 105/62 101/58 L Pulse Oximetry 99 99 Intake & Output 10/30/18 10/31/18 10/31/18 18:59 06:59 18:59 Weight 90.265 kg <Truman Banks - 10/31/18 09:57> Narrative: GENERAL: Well-nourished, well-developed patient. No acute distress. SKIN: Warm and dry. No rash. EYES: No scleral icterus. No injection or drainage. PERRLA. EOMI. HENT: Normocephalic. Atraumatic. Mucous membranes dry. Oral pharyngeal exam benign. NECK: Supple, trachea midline. No JVD or lymphadenopathy. CARDIOVASCULAR: Regular rate and rhythm without obvious murmurs, gallops, or rubs. No pain upon palpation over the chest or axilla. Sternal scar from previous CABG. RESPIRATORY: Breath sounds equal bilaterally. No accessory muscle use. CTAB. GASTROINTESTINAL: Abdomen soft, non-tender, nondistended. BS WNL. MUSCULOSKELETAL: No cyanosis or edema. Strength grossly WNL. BACK: Nontender without obvious deformity. No CVA tenderness. NEURO/PSYCH: Afocal. Awake, alert, and oriented x3. <Truman Banks - 10/31/18 13:55> Results - Labs Result diagrams: 10/31/18 07:33 10/31/18 07:33 <Dayana Pérez - 10/31/18 21:22> Abnormal lab results 10/31/18 10/31/18 10/31/18 Range/Units 07:33 07:33 11:57 RDW 18.5 H (11.6-17.2) % Lymph % (Auto) 47.3 H (9.0-44.0) % Lymphocytes % (Manual) 50 H (9-44) % Smudge Cells Present H (None) Ovalocytes 1+ H (None) Creatinine 1.69 H (0.60-1.30) mg/dL Estimated GFR 40 L (>89) mL/min Total Bilirubin 1.6 H (0.2-1.0) mg/dL Total Creatine Kinase 22 L (39-308) U/L Troponin I Less than 0.02 L Less than 0.02 L (0.02-0.05) ng/mL 10/31/18 Range/Units 14:25 RDW (11.6-17.2) % Lymph % (Auto) (9.0-44.0) % Lymphocytes % (Manual) (9-44) % Smudge Cells (None) Ovalocytes (None) Creatinine (0.60-1.30) mg/dL Estimated GFR (>89) mL/min Total Bilirubin (0.2-1.0) mg/dL Total Creatine Kinase 23 L (39-308) U/L Troponin I Less than 0.02 L (0.02-0.05) ng/mL Short CBC 10/31/18 Range/Units 07:33 WBC 6.3 (4.0-11.0) th/mm3 Hgb 14.3 (13.0-17.0) gm/dL Hct 42.5 (39.0-51.0) % Plt Count 169 (150-450) th/mm3 BMP 02/15/19 07:33 Sodium 138 Potassium 3.9 Chloride 105 Carbon Dioxide 26.6 BUN 13 Creatinine 1.69 H Calcium 8.6 Cardiac Enzymes 10/31/18 10/31/18 10/31/18 Range/Units 07:33 11:57 14:25 Total Creatine Kinase 64 22 L 23 L (39-308) U/L Troponin I Less than 0.02 L Less than 0.02 L Less than 0.02 L (0.02-0.05) ng/mL Liver Function 10/31/18 Range/Units 07:33 Total Bilirubin 1.6 H (0.2-1.0) mg/dL AST 21 (15-37) U/L ALT 16 (12-78) U/L Alkaline Phosphatase 105 (45-117) U/L Albumin 3.9 (3.4-5.0) g/dL <Dayana Pérez - 10/31/18 21:22> Abnormal lab results 10/31/18 10/31/18 Range/Units 07:33 07:33 RDW 18.5 H (11.6-17.2) % Lymph % (Auto) 47.3 H (9.0-44.0) % Lymphocytes % (Manual) 50 H (9-44) % Smudge Cells Present H (None) Ovalocytes 1+ H (None) Creatinine 1.69 H (0.60-1.30) mg/dL Estimated GFR 40 L (>89) mL/min Total Bilirubin 1.6 H (0.2-1.0) mg/dL Troponin I Less than 0.02 L (0.02-0.05) ng/mL Short CBC 10/31/18 Range/Units 07:33 WBC 6.3 (4.0-11.0) th/mm3 Hgb 14.3 (13.0-17.0) gm/dL Hct 42.5 (39.0-51.0) % Plt Count 169 (150-450) th/mm3 [facility] 10/31/18 07:33 Sodium 138 Potassium 3.9 Chloride 105 Carbon Dioxide 26.6 BUN 13 Creatinine 1.69 H Calcium 8.6 Cardiac Enzymes 10/31/18 Range/Units 07:33 Total Creatine Kinase 64 (39-308) U/L Troponin I Less than 0.02 L (0.02-0.05) ng/mL Liver Function 10/31/18 Range/Units 07:33 Total Bilirubin 1.6 H (0.2-1.0) mg/dL AST 21 (15-37) U/L ALT 16 (12-78) U/L Alkaline Phosphatase 105 (45-117) U/L Albumin 3.9 (3.4-5.0) g/dL <Truman Banks 10/31/18 09:57> - Imaging Impressions Pulmonary Perfusion Imaging 10/31/18 00:00 CONCLUSION: 1. Low probability pulmonary embolism. Chest X-Ray 10/31/18 07:29 CONCLUSION: No focal or acute intrathoracic disease. Stable examination. <Dayana Pérez 10/31/18 21:22> Impressions Chest X-Ray 10/31/18 07:29 CONCLUSION: No focal or acute intrathoracic disease. Stable examination. <Truman Banks 10/31/18 09:57> Caprini VTE Risk Assessment Caprini VTE Risk Assessment: Moderate/High Risk (score >= 2) <Truman Banks 10/31/18 16:00> Caprini Risk Assessment Model: Point Value = 1 Point Value = 2 Point Value = 3 Point Value = 5 Age 41-60 Minor surgery BMI > 25 kg/m2 Swollen legs Varicose veins or History of unexplained or recurrent spontaneous Oral contraceptives or hormone replacement Sepsis (< 1 month) Serious lung disease, including pneumonia (< 1 month) Abnormal pulmonary function Acute myocardial infarction Congestive heart failure (< 1 month) History of inflammatory bowel disease Medical patient at bed rest Age 61-74 Arthroscopic surgery Major open surgery (> 45 min) Laparoscopic surgery (> 45 min) Malignancy Confined to bed (> 72 hours) Immobilizing plaster cast Central venous access Age >= 75 History of VTE Family history of VTE Factor V Leiden Prothrombin [id number] Lupus anticoagulant Anticardiolipin antibodies Elevated serum homocysteine Heparin-induced thrombocytopenia Other congenital or acquired thrombophilia Stroke (< 1 month) Elective arthroplasty Hip, pelvis, or leg fracture Acute spinal cord injury (< 1 month) <Dayana Pérez 10/31/18 21:22> Point Value = 1 Point Value = 2 Point Value = 3 Point Value = 5 Age 41-60 Minor surgery BMI > 25 kg/m2 Swollen legs Varicose veins or History of unexplained or recurrent spontaneous Oral contraceptives or hormone replacement Sepsis (< 1 month) Serious lung disease, including pneumonia (< 1 month) Abnormal pulmonary function Acute myocardial infarction Congestive heart failure (< 1 month) History of inflammatory bowel disease Medical patient at bed rest Age 61-74 Arthroscopic surgery Major open surgery (> 45 min) Laparoscopic surgery (> 45 min) Malignancy Confined to bed (> 72 hours) Immobilizing plaster cast Central venous access Age >= 75 History of VTE Family history of VTE Factor V Leiden Prothrombin [id number] Lupus anticoagulant Anticardiolipin antibodies Elevated serum homocysteine Heparin-induced thrombocytopenia Other congenital or acquired thrombophilia Stroke (< 1 month) Elective arthroplasty Hip, pelvis, or leg fracture Acute spinal cord injury (< 1 month) <Truman Banks - 10/31/18 09:57> Prophylaxis Regimen: Total Risk Factor Score Risk Level Prophylaxis Regimen 0-1 Low Early ambulation 2 Moderate Order ONE of the following: *Sequential Compression Device (SCD) *Heparin 5000 units SQ BID 3-4 Higher Order ONE of the following medications: *Heparin 5000 units SQ TID *Enoxaparin/Lovenox 40 mg SQ daily (WT < 150 kg, CrCl > 30 mL/min) *Enoxaparin/Lovenox 30 mg SQ daily (WT < 150 kg, CrCl > 10-29 mL/min) *Enoxaparin/Lovenox 30 mg SQ BID (WT < 150 kg, CrCl > 30 mL/min) AND/OR *Sequential Compression Device (SCD) 5 or more Highest Order ONE of the following medications: *Heparin 5000 units SQ TID (Preferred with Epidurals) *Enoxaparin/Lovenox 40 mg SQ daily (WT < 150 kg, CrCl > 30 mL/min) *Enoxaparin/Lovenox 30 mg SQ daily (WT < 150 kg, CrCl > 10-29 mL/min) *Enoxaparin/Lovenox 30 mg SQ BID (WT < 150 kg, CrCl > 30 mL/min) AND *Sequential Compression Device (SCD) <Dayana Pérez - 10/31/18 21:22> Total Risk Factor Score Risk Level Prophylaxis Regimen 0-1 Low Early ambulation 2 Moderate Order ONE of the following: *Sequential Compression Device (SCD) *Heparin 5000 units SQ BID 3-4 Higher Order ONE of the following medications: *Heparin 5000 units SQ TID *Enoxaparin/Lovenox 40 mg SQ daily (WT < 150 kg, CrCl > 30 mL/min) *Enoxaparin/Lovenox 30 mg SQ daily (WT < 150 kg, CrCl > 10-29 mL/min) *Enoxaparin/Lovenox 30 mg SQ BID (WT < 150 kg, CrCl > 30 mL/min) AND/OR *Sequential Compression Device (SCD) 5 or more Highest Order ONE of the following medications: *Heparin 5000 units SQ TID (Preferred with Epidurals) *Enoxaparin/Lovenox 40 mg SQ daily (WT < 150 kg, CrCl > 30 mL/min) *Enoxaparin/Lovenox 30 mg SQ daily (WT < 150 kg, CrCl > 10-29 mL/min) *Enoxaparin/Lovenox 30 mg SQ BID (WT < 150 kg, CrCl > 30 mL/min) AND *Sequential Compression Device (SCD) <Truman Banks - 10/31/18 09:57> Assessment and Plan - Assessment (1) Chest pain Code(s): R07.9 - Chest pain, unspecified Status: Acute (2) CAD (coronary artery disease) Code(s): I25.10 - Atherosclerotic heart disease of [place] coronary artery without angina pectoris Status: Acute (3) History of four vessel coronary artery bypass graft Code(s): Z95.1 - Presence of aortocoronary bypass graft Status: Acute (4) CLL (chronic lymphocytic leukemia) Code(s): C91.90 - Lymphoid leukemia, unspecified not having achieved remission Status: Acute (5) YAYO (acute kidney injury) Code(s): N17.9 - Acute kidney failure, unspecified Status: Acute (6) Serum total bilirubin elevated Code(s): R17 - Unspecified jaundice Status: Acute (7) BPH (benign prostatic hyperplasia) Code(s): N40.0 - Benign prostatic hyperplasia without lower urinary tract symptoms Status: Acute (8) GERD (gastroesophageal reflux disease) Code(s): K21.9 - Gastro-esophageal reflux disease without esophagitis Status: Acute (9) Nutrition, metabolism, and development symptoms Code(s): R63.8 - Other symptoms and signs concerning food and fluid intake Status: Acute <Vey,Dayana - 10/31/18 21:22> (1) Chest pain Code(s): R07.9 - Chest pain, unspecified Status: Acute Plan: This patient presents with a 2-day history of chest pain in the setting of previous CABG. Patient has never suffered an MD but does suffer from hyperlipidemia. -DDx includes ACS, GERD, PE, pneumonia, panic attack, myocarditis, costochondritis. -CAD risk factors include age, smoking hx, FH, and HLD. -Pt. states CP has bettered with nitro and morphine. -No previous echo on file, BNP of 43. Echo not indicated at this time. -EKG on admission showed no significant ST elevation or depression. -CXR showed no focal acute intrathoracic disease. -Initial Trop less than 0.02. -VQ scan shows low probability for pulmonary embolism -Cardiology consulted, cath not recommended at this time. Proceed with ACS rule out. Plan: -Topical Nitropaste 2% half inch for chest pain -Trend cardiac enzymes -Monitor on telemetry -Supplemental O2. Daily aspirin. Protonix. -Morphine 2mg Q2 hrs PRN chest pain only. -Metoprolol 25 PO BID laura (hold for low BP and HR). -NPO for now in case of PCI. -AM BMP + Mg to detect/correct electrolyte abnormalities that could lower arrhythmia threshold. (2) CAD (coronary artery disease) Code(s): I25.10 - Atherosclerotic heart disease of [place] coronary artery without angina pectoris Status: Acute Plan: Please see plan for chest pain (3) History of four vessel coronary artery bypass graft Code(s): Z95.1 - Presence of aortocoronary bypass graft Status: Acute Plan: Please see plan for chest pain (4) CLL (chronic lymphocytic leukemia) Code(s): C91.90 - Lymphoid leukemia, unspecified not having achieved remission Status: Acute Plan: This patient has a history of CLL originally diagnosed in 2013 and treated with 6 rounds of chemotherapy with his last dose being August 20, 2018. Due to his inability to tolerate his last chemotherapy patient is being switched but is not currently being treated at the time as he is in between treatment. -White count of 6.3 on admission -Lymphocyte predominance 47.3% -Smudge cells present -Patient to follow-up with his outpatient oncologist (5) YAYO (acute kidney injury) Code(s): N17.9 - Acute kidney failure, unspecified Status: Acute Plan: This patient presents with a creatinine of 1.69, baseline unknown. -Patient to begin oral hydration once ACS is ruled out -Monitor creatinine function (6) Serum total bilirubin elevated Code(s): R17 - Unspecified jaundice Status: Acute Plan: Patient presents with elevated total bilirubin of 1.6. This patient denies any GI symptoms on admission to include nausea, vomiting, or abdominal pain. -Continue to trend bilirubin (7) BPH (benign prostatic hyperplasia) Code(s): N40.0 - Benign prostatic hyperplasia without lower urinary tract symptoms Status: Acute Plan: Continue home finasteride and tamsulosin (8) GERD (gastroesophageal reflux disease) Code(s): K21.9 - Gastro-esophageal reflux disease without esophagitis Status: Acute Plan: Continue home pantoprazole (9) Nutrition, metabolism, and development symptoms Code(s): R63.8 - Other symptoms and signs concerning food and fluid intake Status: Acute Plan: Fluids: Normal saline at half maintenance rate 65 mL/h Electrolytes: Replete as needed Nutrition: N.p.o. for now DVT prophylaxis: Enoxaparin subcu <Truman Banks - 10/31/18 15:55> - Attending Attestation Patient seen and examined, discussed with resident team. I agree with assessment and management as documented and discussed with me. Timothy Dobbs is a gentleman with known h/o CAD and CABG admitted for chest pain. Work up thus far nonrevealing, including troponins and VQ scan. Consider nuclear stress test as an outpatient. Anticipate discharge in AM, once work up complete. <Dayana Pérez - 10/31/18 21:22> <Truman Banks - Last Filed: 10/31/18 15:55> (1) Chest pain Qualifiers: Chest pain type: unspecified Qualified Code(s): R07.9 - Chest pain, unspecified <Dayana Pérez - Last Filed: 10/31/18 21:22> (1) Chest pain Qualifiers: Chest pain type: unspecified Qualified Code(s): R07.9 - Chest pain, unspecified <Truman Banks - Last Filed: 10/31/18 15:55> (1) Chest pain Qualifiers: Chest pain type: unspecified Qualified Code(s): R07.9 - Chest pain, unspecified <Dayana Pérez - Last Filed: 10/31/18 21:22> (1) Chest pain Qualifiers: Chest pain type: unspecified Qualified Code(s): R07.9 - Chest pain, unspecified
[2018-10-31] MEDS ORDERED: Acetaminophen 325 MG Tablet PO PRN (10:18)
[2018-10-31] MEDS ORDERED: Bisacodyl 10 MG Supp RECTAL PRN (10:18)
[2018-10-31] MEDS ORDERED: Morphine Sulfate Inj 2 MG/ML Vial IV.PUSH PRN (10:30)
[2018-10-31] MEDS: Sod Chloride 0.9% Inj 1,000 ML IV.CONT SCH (10:42)
[2018-10-31] MEDS: Enoxaparin Inj 40 MG/0.4 ML Syringe SQ SCH (11:20)
[2018-10-31 12:46] LABS: Creatine Kinase 22 U/L (39-308)
--- NOTE | 2018-10-31 13:47 | NM ---
EXAM DATE: 10/31/2018 1:42 PM EST AGE/SEX: 73 years / Male INDICATIONS: Dyspnea. CLINICAL DATA: This is the patient's initial encounter. Patient reports that signs and symptoms have been present for 1 day and indicates a pain score of 5/10. MEDICAL/SURGICAL HISTORY: Gastroesophageal reflux disease. Leukemia. Coronary artery disease a nd renal carcinoma. CABG. Cholecystectomy. Nephrectomy, left. COMPARISON: [facility], CHEST 1V SINGLE AP, 10/31/2018. . DOSE: 1.7 mCi Tc99m DTPA aerosol 8.8 mCi Tc99m MAA IV TECHNIQUE: Following five minutes of tidal breathing of DTPA aerosol, planar images of the lungs wer e performed in eight projections. The patient was then injected with MAA, and eight-view perfusion s can was performed. FINDINGS: There is a homogeneous pattern of aerosol delivery to the periphery of both lungs. No focal ventilat ory defects are seen. The perfusion lung scan demonstrates a homogenous pattern of uptake in both lungs. No segmental or s ubsegmental defects are seen. CONCLUSION: 1. Low probability pulmonary embolism. Electronically signed by: Thomas Verde MD Board Certified Radiologist 10/31/2018 1:46 PM EST
--- NOTE | 2018-10-31 14:44 | ECG ---
Date Performed: 10/31/2018 Time Performed: 06:39:22 PTAGE: 73 years EKG: Sinus rhythm NORMAL ECG Since the PREVIOUS TRACING , no significant change noted PREVIOUS TRACIN10/08/2018 07.20 DOCTOR: Katrina Reed Interpretating Date/Time 10/31/2018 14:38:45
--- NOTE | 2018-10-31 14:44 | ECG ---
Date Performed: 10/31/2018 Time Performed: 08:08:54 PTAGE: 73 years EKG: Sinus rhythm NORMAL ECG Since the PREVIOUS TRACING , no significant change noted PREVIOUS TRACIN10/31/2018 06.39 DOCTOR: Katrina Reed Interpretating Date/Time 10/31/2018 14:38:53
[2018-10-31 15:38] VITALS: RESP 16
[2018-10-31 15:39] LABS: Creatine Kinase 23 U/L (39-308)
[2018-10-31 16:32] LABS: Hemoglobin A1c 4.6 % (4.3-6.0)
--- NOTE | 2018-10-31 16:56 | P.CONCA ---
History of Present Illness Service: Cardiology Consult date: 10/31/18 Requesting Physician: Mary Stevens Reason for Consult: Chest pain Primary Care Provider: Isaak Herbert MD History of Present Illness: This is a 73-year-old male known to Dr. East with a past medical history of ASHD, CABG X 4, dilated aortic root, hyperlipidemia, bladder cancer, chronic kidney disease - left kidney removed, leukemia and obesity. He presented to the Emergency Department with complaints of left sided chest pain that started last night. He states that the pain was intermittent without any other symptoms. He went to bed and at around 04:00 this morning the pain increased in intensity so he took an 81 mg ASA. He was given one Nitro SL with minimal relief. He states that it took the edge off but did not completely relieve it. He states that the pain increases with deep breathing and that it feels sharp. On evaluation, he continues to have left lower chest pain that increases with inspiration. He denies pressure, palpitations, dizziness, edema or SOB. On 06/03 echo showed EF 53%, mild MR, mild TR, LVH, LAE and redundant MV. On 01/13/18 PET scan was negative for ischemia. Review of Systems All other systems reviewed negative except as stated in HPI PMFSH - History History Provided By: Patient - Medical History Medical History: Medical History (Last Reviewed 10/31/18 @ 07:37 by Mary Stevens) FH: cholecystectomy BPH (benign prostatic hyperplasia) CAD (coronary artery disease) CLL (chronic lymphocytic leukemia) GERD (gastroesophageal reflux disease) Hiatal hernia Hx of renal cell carcinoma Hyperlipidemia Schatzki's ring of distal esophagus - Surgical History Surgical History: Surgical History (Last Reviewed 10/31/18 @ 07:37 by Mary Stevens) History of nephrectomy Hx of CABG Hx of cataract surgery - Tobacco History Second Hand Smoke Exposure: No Tobacco Use In Past 30 Days: No Smoking Status: Former smoker Tobacco Type: Cigarettes - Alcohol History How Often Do You Have a Drink Containing Alcohol: Monthly or less - Substance Use History Substance History: No History of Abuse - Travel History Recent Travel Out of the Country Within the Last 8 Weeks: No - Immunization History Tetanus Immunization: >5 Years Medications and Allergies Allergies Allergy/AdvReac Type Severity Reaction Status Date / Time ciprofloxacin Allergy Intermediate Itching Verified 10/31/18 06:23 propoxyphene Allergy Intermediate Itching Verified 10/31/18 06:23 sulfamethoxazole Allergy Intermediate Hives Verified 10/31/18 06:23 Home Medications Medication Instructions Recorded Confirmed Type aspirin [Aspir-81] 81 mg PO DAILY 09/15/18 10/31/18 History atorvastatin 40 mg PO QPM 09/15/18 10/31/18 History finasteride 5 mg PO QTUTHSU 09/15/18 10/31/18 History furosemide 20 mg PO DAILY 09/15/18 10/31/18 History ondansetron HCl [Zofran] 4 mg PO TID 09/15/18 10/31/18 History pantoprazole 40 mg PO BID 09/15/18 10/31/18 History tamsulosin 0.4 mg PO DAILY 09/15/18 10/31/18 History Active Medications: Active Medications Acetaminophen (Tylenol) 650 mg PO Q4H PRN PRN Reason: Temp > 100.4 Al Hydroxide/Mg Hydroxide (Milk Of Magnesia Liq) 30 ml PO Q12H PRN PRN Reason: Mild Constipation Aspirin (Ecotrin) 81 mg PO DAILY [facility] Last Admin: 10/31/18 13:48 Dose: 81 mg Atorvastatin Calcium (Lipitor) 40 mg PO DAILY@1800 [facility] Bisacodyl (Dulcolax Supp) 10 mg RECTAL DAILY PRN PRN Reason: SEVERE CONSITIPATION Enoxaparin Sodium (Lovenox Inj) 40 mg SQ Q24H [facility] Last Admin: 10/31/18 11:20 Dose: 40 mg Finasteride (Proscar) 5 mg PO SuTuTh [facility] Furosemide (Lasix) 20 mg PO DAILY [facility] Sodium Chloride (Ns Inj) 1,000 mls @ 65 mls/hr IV.CONT .[id number] [facility] Last Admin: 10/31/18 10:42 Dose: 65 mls/hr Lactulose (Lactulose Liq) 30 ml PO DAILY PRN PRN Reason: SEVERE CONSITIPATION Lisinopril (Prinivil) 2.5 mg PO DAILY [facility] Metoprolol Tartrate (Lopressor) 25 mg PO BID [facility] Miscellaneous (Pill Splitter) 1 each OTHER UNSCH PRN PRN Reason: SEE LABEL COMMENTS Morphine Sulfate (Morphine Inj) 2 mg IV.PUSH Q3H PRN PRN Reason: PAIN SCALE 6 TO 10 Nitroglycerin (Nitro-Bid 2% Oint) 0.5 inch TOPICAL Q6H PRN PRN Reason: CHEST PAIN Ondansetron HCl (Zofran Inj) 4 mg IV.PUSH Q6H PRN PRN Reason: NAUSEA OR VOMITING Pantoprazole Sodium (Protonix) 40 mg PO BID [facility] Senna/Docusate Sodium (Isabel-Colace) 1 tab PO BID [facility] Sennosides (Senokot) 17.2 mg PO Q12H PRN PRN Reason: Moderate Constipation Sodium Chloride (Ns Flush) 2 ml IV.FLUSH BID [facility] Sodium Chloride (Ns Flush) 2 ml IV.FLUSH UNSCH PRN PRN Reason: FLUSH AFTER USING IV ACCESS Tamsulosin HCl (Flomax) 0.4 mg PO DAILY [facility] Exam Vital signs: Vital Signs 10/31/18 06:23 10/31/18 06:50 10/31/18 07:05 Temperature 98.8 F 98.5 F Pulse Rate 97 H 87 82 Respiratory Rate 16 18 18 Blood Pressure 151/69 H 139/68 125/70 Pulse Oximetry 98 95 10/31/18 07:29 10/31/18 08:02 10/31/18 08:06 Temperature 98.4 F 98.4 F Pulse Rate 89 91 H Respiratory Rate 17 16 15 Blood Pressure 105/62 101/58 L Pulse Oximetry 99 99 10/31/18 10:03 10/31/18 10:18 10/31/18 10:20 Temperature 98.2 F 98.4 F Pulse Rate 89 80 Respiratory Rate 16 18 Blood Pressure 104/56 L 115/59 L Pulse Oximetry 96 97 10/31/18 11:00 10/31/18 12:15 10/31/18 13:49 Temperature 98.2 F 98.1 F 97.8 F Pulse Rate 75 87 79 Respiratory Rate 18 22 17 Blood Pressure 116/55 L 121/59 L 135/64 Pulse Oximetry 96 96 96 10/31/18 15:34 Temperature 98.3 F Pulse Rate 75 Respiratory Rate 16 Blood Pressure 141/63 H Pulse Oximetry 97 Intake & Output 10/30/18 10/31/18 10/31/18 18:59 06:59 18:59 Weight 90.265 kg Other: Date of Last Bowel Movement 10/30/18 - Constitutional no acute distress - Routine HEENT Exam Head: Present: normocephalic Eye: Present: PERRL ENT: Present: mucous membranes moist - Routine Neck Exam Present: full ROM - Routine Respiratory Exam Present: CTA bilaterally - Routine Cardiovascular Exam Present: S1, S2. Absent: murmur, gallop, rubs - Routine Abdominal Exam Present: normoactive bowel sounds - Routine Extremities Exam Present: full ROM, pulses intact, normal capillary refill. Absent: cyanosis, clubbing, edema - Routine Skin Exam Present: intact - Routine Neurological Exam Present: oriented X3 Results 10/31/18 07:33 10/31/18 07:33 Cardiac Enzymes 10/31/18 10/31/18 10/31/18 Range/Units 07:33 07:33 11:57 AST 21 (15-37) U/L Troponin I Less than 0.02 L Less than 0.02 L (0.02-0.05) ng/mL B-Natriuretic Peptide 43 (0-100) pg/mL 10/31/18 Range/Units 14:25 AST (15-37) U/L Troponin I Less than 0.02 L (0.02-0.05) ng/mL B-Natriuretic Peptide (0-100) pg/mL Coagulation 10/31/18 10/31/18 Range/Units 07:33 07:33 PT 10.6 (9.8-11.6) sec APTT 27.2 (23.4-31.7) sec B-Natriuretic Peptide 43 (0-100) pg/mL CBC 10/31/18 Range/Units 07:33 WBC 6.3 (4.0-11.0) th/mm3 RBC 4.61 (4.50-5.90) mil/mm3 Hgb 14.3 (13.0-17.0) gm/dL Hct 42.5 (39.0-51.0) % Plt Count 169 (150-450) th/mm3 Neut # (Auto) 3.2 (1.8-7.7) th/mm3 Lymph # (Auto) 3.0 (1.0-4.8) th/mm3 [place] # (Auto) 0.1 (0.0-0.9) th/mm3 Eos # (Auto) 0.0 (0.0-0.4) th/mm3 Baso # (Auto) 0.0 (0.0-0.2) th/mm3 Comprehensive Metabolic Panel 10/31/18 Range/Units 07:33 Sodium 138 (136-145) meq/L Potassium 3.9 (3.5-5.1) meq/L Chloride 105 (98-107) meq/L Carbon Dioxide 26.6 (21.0-32.0) meq/L BUN 13 (7-18) mg/dL Creatinine 1.69 H (0.60-1.30) mg/dL Calcium 8.6 (8.5-10.1) mg/dL AST 21 (15-37) U/L ALT 16 (12-78) U/L Alkaline Phosphatase 105 (45-117) U/L Total Protein 7.0 (6.4-8.2) g/dL Albumin 3.9 (3.4-5.0) g/dL Intake and Output 10/31/18 10/31/18 10/31/18 06:59 14:59 22:59 Other: Date of Last Bowel Movement 10/30/18 Weight 90.265 kg - Imaging and Cardiology Imaging: Impressions Pulmonary Perfusion Imaging 10/31/18 00:00 CONCLUSION: 1. Low probability pulmonary embolism. Chest X-Ray 10/31/18 07:29 CONCLUSION: No focal or acute intrathoracic disease. Stable examination. Assessment and Plan - Assessment (1) Chest pain Code(s): R07.9 - Chest pain, unspecified Status: Acute (2) YAYO (acute kidney injury) Code(s): N17.9 - Acute kidney failure, unspecified Status: Acute (3) CAD (coronary artery disease) Code(s): I25.10 - Atherosclerotic heart disease of [place] coronary artery without angina pectoris Status: Acute (4) CLL (chronic lymphocytic leukemia) Code(s): C91.90 - Lymphoid leukemia, unspecified not having achieved remission Status: Acute (5) History of four vessel coronary artery bypass graft Code(s): Z95.1 - Presence of aortocoronary bypass graft Status: Acute (6) BPH (benign prostatic hyperplasia) Code(s): N40.0 - Benign prostatic hyperplasia without lower urinary tract symptoms Status: Acute - Plan Troponin levels are not trending and EKG shows no acute process. There are no signs of ACS at this time. Patient has atypical chest pain that increases with inspiration. We will continue with current cardiac treatment plan. Continue to monitor the patient on telemetry. We will continue to monitor the patient during his hospitalization. He is to follow up with his primary director of design, Dr. East, once he is discharge from the hospital. The patient was seen and evaluated by Dr. Marrero who participated in care, management and decision making. - Attending Attestation Patient seen and examined. I reviewed and agree with the evaluation and plan as presented. CP is atypical, likely of noncardiac origin. Cardiac enzymes unremarkable. Monitor overnight; recommend to DC home tomorrow AM if he remains stable. Will schedule f/u with Dr. East after discharge. (1) Chest pain Qualifiers: Chest pain type: unspecified Qualified Code(s): R07.9 - Chest pain, unspecified
--- NOTE | 2018-10-31 19:11 | ECG ---
Date Performed: 10/31/2018 Time Performed: 17:14:39 PTAGE: 73 years EKG: Sinus rhythm NORMAL ECG No significant change from prior electrocardiogram. PREVIOUS TRACING : 10/31/2018 08.08 DOCTOR: Shai Burris Interpretating Date/Time 10/31/2018 19:09:27
[2018-10-31] MEDS: Senna/Docusate Sodium 8.6/50 MG Tablet PO SCH (21:35)
[2018-10-31] MEDS: Metoprolol Tartrate 25 MG Tablet PO SCH (21:35)
[2018-11-01 07:33] LABS: INR 1.1 Ratio; Prothrombin Time 10.7 sec (9.8-11.6)
[2018-11-01 08:12] VITALS: BP 141/73; TEMP 98.2; O2SAT 95
[2018-11-01] MEDS ORDERED: Furosemide 20 MG Tablet PO SCH (09:00)
[2018-11-01] MEDS ORDERED: Lisinopril 5 MG Tablet PO SCH (09:00)
[2018-11-01] MEDS: Senna/Docusate Sodium 8.6/50 MG Tablet PO SCH (09:20)
[2018-11-01] MEDS: Metoprolol Tartrate 25 MG Tablet PO SCH (09:21)
[2018-11-01] MEDS: Sod Chloride 0.9% Inj 1,000 ML IV.CONT SCH (09:21)
[2018-11-01 10:16] LABS: Amorphous Sediment,Urine Rare /hpf; Bilirubin,Urine Negative (Negative); Clarity,Urine Hazy (Clear); Color,Urine Yellow (Yellw/Straw); Glucose,Urine (UA) Negative (Negative); Leukocyte Esterase,Urine Large (Negative); Mucus,Urine Few /lpf (Occasional); Nitrite,Urine Negative (Negative); Specific Gravity,Urine 1.009 (1.002-1.035); Squamous Epithelial Cell,Urine 1 /hpf (0-5)
--- NOTE | 2018-11-01 11:16 | P.PNFP ---
Subjective Interval history: Patient was seen and examined this morning. He states he still has a little bit of deep breathing pain on the left side of his chest but was slight improvement. It feels like the pain he had when he had pleurisy before. He also complains this morning of malodorous urine worries about UTI. He has had a UTI in the past which was amenable to p.o. antibiotics. Otherwise he denies shortness of breath, fevers, chills, difficulty with ambulation or dizziness. He is ready to go home otherwise. <Oswald Noy Plata - 11/01/18 13:03> Results - Labs Result diagrams: 10/31/18 07:33 10/31/18 07:33 <Dayana Pérez - 11/02/18 09:30> Abnormal lab results 11/01/18 Range/Units 09:30 Urine Clarity Hazy H (Clear) Urine Occult Blood Moderate H (Negative) Ur Leukocyte Esterase Large H (Negative) Urine WBC 167 H (0-5) /hpf Urine WBC Clumps Few H (None) Amorphous Sediment Rare H (None) /hpf Urine Mucus Few H (Occasional) /lpf Urine 11/01/18 Range/Units 09:30 Urine Color Yellow (Yellw/Straw) Urine Clarity Hazy H (Clear) Urine pH 7.0 (5.0-8.5) Ur Specific [place] 1.009 (1.002-1.035) Urine Protein Negative (Neg-Trace) mg/dL Urine Glucose (UA) Negative (Negative) mg/dL <Dayana Pérez - 11/02/18 09:30> Abnormal lab results 10/31/18 10/31/18 11/01/18 Range/Units 11:57 14:25 09:30 Total Creatine Kinase 22 L 23 L (39-308) U/L Troponin I Less than 0.02 L Less than 0.02 L (0.02-0.05) ng/mL Urine Clarity Hazy H (Clear) Urine Occult Blood Moderate H (Negative) Ur Leukocyte Esterase Large H (Negative) Urine WBC 167 H (0-5) /hpf Urine WBC Clumps Few H (None) Amorphous Sediment Rare H (None) /hpf Urine Mucus Few H (Occasional) /lpf Cardiac Enzymes 10/31/18 10/31/18 Range/Units 11:57 14:25 Total Creatine Kinase 22 L 23 L (39-308) U/L Troponin I Less than 0.02 L Less than 0.02 L (0.02-0.05) ng/mL Urine 11/01/18 Range/Units 09:30 Urine Color Yellow (Yellw/Straw) Urine Clarity Hazy H (Clear) Urine pH 7.0 (5.0-8.5) Ur Specific [place] 1.009 (1.002-1.035) Urine Protein Negative (Neg-Trace) mg/dL Urine Glucose (UA) Negative (Negative) mg/dL <Noy Mcghee - 11/01/18 11:16> - Imaging Impressions Pulmonary Perfusion Imaging 10/31/18 00:00 CONCLUSION: 1. Low probability pulmonary embolism. <Noy Mcghee - 11/01/18 11:16> Physical Exam Vital signs: Intake & Output 11/01/18 11/02/18 11/02/18 18:59 06:59 18:59 Intake Total 100 / 100 Balance 100 / 100 Intake: IV 100 / 100 NS Inj 1,000 ML @ 65 mls/hr IV. 0 / 0 CONT .[id number] [facility] Rx#:[id number] Rocephin Inj 1,000 MG In NS Inj 100 / 100 100 ML @ 200 mls/hr IV.SIG ONCE ONE Rx#:[id number] <ElisaDayana - 11/02/18 09:30> Vital Signs 10/31/18 12:15 10/31/18 13:49 10/31/18 15:34 Temperature 98.1 F 97.8 F 98.3 F Pulse Rate 87 79 75 Respiratory Rate 22 17 16 Blood Pressure 121/59 L 135/64 141/63 H Pulse Oximetry 96 96 97 10/31/18 19:34 10/31/18 20:00 10/31/18 23:18 Temperature 99.3 F 98.8 F Pulse Rate 84 85 67 Respiratory Rate 16 16 Blood Pressure 147/67 H 143/66 H Pulse Oximetry 96 96 94 L 11/01/18 03:20 11/01/18 08:00 Temperature 98.4 F 98.2 F Pulse Rate 72 76 Respiratory Rate 16 16 Blood Pressure 133/68 141/73 H Pulse Oximetry 93 L 95 Intake & Output 10/31/18 11/01/18 11/01/18 18:59 06:59 18:59 Intake Total 163 / 163 0 / 0 Output Total 1200 / 1200 Balance 163 / 163 -1200 / -1200 0 / 0 Intake: IV 163 / 163 0 / 0 NS Inj 1,000 ML @ 65 mls/hr IV. 163 / 163 0 / 0 CONT .[id number] [facility] Rx#:[id number] Output: Urine 1200 / 1200 Other: Date of Last Bowel Movement 10/30/18 Weight On Admission 90.265 kg <Noy Mcghee - 11/01/18 11:16> Narrative: at bedside. GENERAL: Well-nourished, well-developed patient. No acute distress. SKIN: Warm and dry. No rash. EYES: No scleral icterus. No injection or drainage. PERRL. EOMI. HENT: Normocephalic. Atraumatic. Mucous membranes dry. Oral pharyngeal exam benign. NECK: Supple, trachea midline. No JVD or lymphadenopathy. CARDIOVASCULAR: Regular rate and rhythm without obvious murmurs, gallops, or rubs. No pain upon palpation over the chest or axilla. Sternal scar from previous CABG. RESPIRATORY: Breath sounds equal bilaterally. No accessory muscle use. CTAB. GASTROINTESTINAL: Abdomen soft, non-tender, nondistended. BS WNL. MUSCULOSKELETAL: No cyanosis or edema. Strength grossly WNL. BACK: Nontender without obvious deformity. No CVA tenderness. NEURO/PSYCH: Afocal. Awake, alert, and oriented x3. <Noy Mcghee - 11/01/18 13:03> Assessment and Plan - Assessment (1) Chest pain Code(s): R07.9 - Chest pain, unspecified Status: Acute (2) CAD (coronary artery disease) Code(s): I25.10 - Atherosclerotic heart disease of [place] coronary artery without angina pectoris Status: Acute (3) History of four vessel coronary artery bypass graft Code(s): Z95.1 - Presence of aortocoronary bypass graft Status: Acute (4) CLL (chronic lymphocytic leukemia) Code(s): C91.90 - Lymphoid leukemia, unspecified not having achieved remission Status: Acute (5) CKD (chronic kidney disease) stage 3, GFR 30-59 ml/min Code(s): N18.3 - Chronic kidney disease, stage 3 (moderate) Status: Chronic (6) Serum total bilirubin elevated Code(s): R17 - Unspecified jaundice Status: Acute (7) BPH (benign prostatic hyperplasia) Code(s): N40.0 - Benign prostatic hyperplasia without lower urinary tract symptoms Status: Chronic (8) GERD (gastroesophageal reflux disease) Code(s): K21.9 - Gastro-esophageal reflux disease without esophagitis Status: Chronic (9) UTI (urinary tract infection), bacterial Code(s): N39.0 - Urinary tract infection, site not specified; A49.9 - Bacterial infection, unspecified Status: Acute (10) Nutrition, metabolism, and development symptoms Code(s): R63.8 - Other symptoms and signs concerning food and fluid intake Status: Acute <ElisaDayana - 11/02/18 09:30> (1) Chest pain Code(s): R07.9 - Chest pain, unspecified Status: Acute Plan: 73-year-old male presented 10/31 with 2-day history of chest pain in the setting of previous CABG. He has history of hyperlipidemia as well. ACS rule out has occurred with cardiac enzyme negative x3 overnight with old and unremarkable EKGs. At this time suspect patient's chest pain is related to pleurisy proved. Given his cardiac history NSAIDs are contraindicated and we discussed this with him. He states Tylenol does not help much but we recommend limiting pain management home to this at this time. Patient did have a VQ scan which showed low probability for PE. Other diagnoses such as GERD, myocarditis, costochondritis less likely based on history and physical exam. Cardiology was consulted, appreciate evaluation and management, no cath is indicated at this time. Patient is clear for discharge at this time from their standpoint given workup noted above. Plan: -Patient is stable for discharge home today -New medications on discharge: metoprolol 25 PO BID laura, cefdinir 500 mg twice daily x 10 days for UTI, acetaminophen 650 mg every 4 hours as needed, lisinopril 2.5 mg daily -Patient to follow-up with his websphere developer as well as PCP in 1-2-weeks (2) CAD (coronary artery disease) Code(s): I25.10 - Atherosclerotic heart disease of [place] coronary artery without angina pectoris Status: Acute Plan: Please see plan for chest pain (3) History of four vessel coronary artery bypass graft Code(s): Z95.1 - Presence of aortocoronary bypass graft Status: Acute Plan: Please see plan for chest pain (4) CLL (chronic lymphocytic leukemia) Code(s): C91.90 - Lymphoid leukemia, unspecified not having achieved remission Status: Acute Plan: This patient has a history of CLL originally diagnosed in 2013 and treated with 6 rounds of chemotherapy with his last dose being August 20, 2018. Due to his inability to tolerate his last chemotherapy patient is being switched but is not currently being treated at the time as he is in between treatment. -White count of 6.3 on admission -Lymphocyte predominance 47.3% -Smudge cells present -Patient to follow-up with his outpatient oncologist (5) CKD (chronic kidney disease) stage 3, GFR 30-59 ml/min Code(s): N18.3 - Chronic kidney disease, stage 3 (moderate) Status: Chronic Plan: Creatinine of 1.69 on admission, appears to be patient's baseline. Bilirubin is also mildly elevated, clinical significance unclear at this time. Patient to follow with PCP. (6) Serum total bilirubin elevated Code(s): R17 - Unspecified jaundice Status: Acute Plan: Patient presents with elevated total bilirubin of 1.6. This patient denies any GI symptoms on admission to include nausea, vomiting, or abdominal pain. -to follow with PCP (7) BPH (benign prostatic hyperplasia) Code(s): N40.0 - Benign prostatic hyperplasia without lower urinary tract symptoms Status: Chronic Plan: Continue home finasteride and tamsulosin (8) GERD (gastroesophageal reflux disease) Code(s): K21.9 - Gastro-esophageal reflux disease without esophagitis Status: Chronic Plan: Continue home pantoprazole (9) UTI (urinary tract infection), bacterial Code(s): N39.0 - Urinary tract infection, site not specified; A49.9 - Bacterial infection, unspecified Status: Acute Plan: On date of discharge patient did complain of urinary symptoms with notable chronic history of solitary kidney, BPH, and CKD. He does also report a remote history of UTI. Urinalysis showing Hazy appearance, moderate blood, large leukocyte esterase, 167 WBCs. Will give 1 g IV Rocephin prior to discharge and continue cefdinir 500 mg twice daily p.o. x10 additional days. Patient to follow-up with PCP for repeat urinalysis (10) Nutrition, metabolism, and development symptoms Code(s): R63.8 - Other symptoms and signs concerning food and fluid intake Status: Acute Plan: Fluids: Normal saline at half maintenance rate 65 mL/h Electrolytes: Replete as needed Nutrition: N.p.o. for now DVT prophylaxis: Enoxaparin subcu <Noy Mcghee - 11/01/18 12:51> - Assessment and Plan Discussed Condition With: Seen and discussed with Drs. Pérez and Adan <Oswald Eulogio Plat[place]arlton Castro - 11/01/18 13:03> Discharge Planning: Discharge patient home today 11/01 with outpatient follow-up with cardiology and PCP <Oswald Eulogio Platacarlton Castro - 11/01/18 13:03> - Attending Attestation Patient seen and examined the morning of 11/01/2018, discussed with resident team. I agree with assessment and management as documented and discussed with me. Pt feeling better this morning. No significant chest pain. He does report new onset dysuria today, with pain at the tip of his penis with urination. On exam, meatus WNL. No CVAT. Urinalysis indicates likely infecction. Antibiotics started and will follow up UCx, even after discahrge. <Dayana Pérez - 11/02/18 09:30> <Oswald Noy Plata Matthew - Last Filed: 11/01/18 12:51> (1) Chest pain Qualifiers: Chest pain type: pleurodynia Qualified Code(s): R07.81 - Pleurodynia <YaasoloDayana - Last Filed: 11/02/18 09:30> (1) Chest pain Qualifiers: Chest pain type: pleurodynia Qualified Code(s): R07.81 - Pleurodynia <Noy Mcghee - Last Filed: 11/01/18 12:51> (1) Chest pain Qualifiers: Chest pain type: pleurodynia Qualified Code(s): R07.81 - Pleurodynia <Dayana Pérez - Last Filed: 11/02/18 09:30> (1) Chest pain Qualifiers: Chest pain type: pleurodynia Qualified Code(s): R07.81 - Pleurodynia
[2018-11-01] MEDS: Enoxaparin Inj 40 MG/0.4 ML Syringe SQ SCH (12:39)
[2018-11-01 12:51] VITALS: PULSE 83
--- NOTE | 2018-11-01 14:14 | ECG ---
Date Performed: 10/31/2018 Time Performed: 19:45:25 PTAGE: 73 years EKG: Sinus rhythm NORMAL ECG No significant change from prior electrocardiogram. PREVIOUS TRACING : 10/31/2018 17.14 DOCTOR: Shai Burris Interpretating Date/Time 11/01/2018 14:12:30
[2018-11-02] MEDS ORDERED: Finasteride 5 MG Tablet PO SCH (09:00)
== END 2018-11-01 13:06 | disposition home or self-care (01) ==
LOC: NEDA 06:22 → NEPE 06:22 → NEPHCDU 15:00
PROVIDERS: ADMIT Family Medicine; ATTEND Family Medicine
DX: Z88.1 Allergy status to other antibiotic agents; F17.210 Nicotine dependence, cigarettes, uncomplicated; Z92.21 Personal history of antineoplastic chemotherapy; K22.2 Esophageal obstruction; K44.9 Diaphragmatic hernia without obstruction or gangrene; K81.9 Cholecystitis, unspecified; Z88.2 Allergy status to sulfonamides; N18.3 Chronic kidney disease, stage 3 (moderate); E78.5 Hyperlipidemia, unspecified; I26.99 Other pulmonary embolism without acute cor pulmonale; N39.0 Urinary tract infection, site not specified; I25.10 Atherosclerotic heart disease of native coronary artery without angina pectoris; I12.9 Hypertensive chronic kidney disease with stage 1 through stage 4 chronic kidney disease, or unspecified chronic kidney disease; E66.9 Obesity, unspecified; C91.10 Chronic lymphocytic leukemia of B-cell type not having achieved remission; C67.9 Malignant neoplasm of bladder, unspecified; Z95.1 Presence of aortocoronary bypass graft; B96.4 Proteus (mirabilis) (morganii) as the cause of diseases classified elsewhere; I77.810 Thoracic aortic ectasia; Z90.5 Acquired absence of kidney; Z79.899 Other long term (current) drug therapy; K21.9 Gastro-esophageal reflux disease without esophagitis; Z79.82 Long term (current) use of aspirin; N40.0 Benign prostatic hyperplasia without lower urinary tract symptoms; N17.9 Acute kidney failure, unspecified; R07.9 Chest pain, unspecified
CPT/HCPCS: 71010; 71045; 78582; 80053; 82550; 83036; 83520; 83690; 83735; 83880; 84484; 85025; 85610; 85730; 87077; 87086; 87186; 93005; 96361; 96372; 96374; 99285; A9519; A9540; A9567; C1094; G0378; J0696; J1650; J7030